=== PATIENT | female | born 1965 | race Caucasian/White ===

== ENCOUNTER → 2021-10-22 13:03 | Outpatient (BNVA) | payer MEDICARE, MEDICAID, SELFPAY | PROVIDERS: Family Provider Family Medicine; PCP Family Medicine; Visit Provider Internal Medicine | DX: I25.10 Atherosclerotic heart disease of native coronary artery without angina pectoris (principal); E11.9 Type 2 diabetes mellitus without complications; Z79.4 Long term (current) use of insulin; F17.290 Nicotine dependence, other tobacco product, uncomplicated; Z95.5 Presence of coronary angioplasty implant and graft | CPT/HCPCS: 93005; 99204 ==

== ENCOUNTER → 2022-03-05 12:41 | Outpatient (BNVA) | payer MEDICARE, MEDICAID, SELFPAY | PROVIDERS: Family Provider Family Medicine; PCP Family Medicine; Visit Provider Internal Medicine | DX: I25.10 Atherosclerotic heart disease of native coronary artery without angina pectoris (principal); E11.9 Type 2 diabetes mellitus without complications; Z79.4 Long term (current) use of insulin; F17.290 Nicotine dependence, other tobacco product, uncomplicated | CPT/HCPCS: 99214 ==

== ENCOUNTER → 2023-09-30 09:45 | Outpatient (BNVA) | payer MEDICARE, MEDICAID, SELFPAY | PROVIDERS: Family Provider Family Medicine; PCP Family Medicine; Referring Provider Family Medicine; Visit Provider Internal Medicine | DX: I25.10 Atherosclerotic heart disease of native coronary artery without angina pectoris; E78.2 Mixed hyperlipidemia; N81.4 Uterovaginal prolapse, unspecified; E11.42 Type 2 diabetes mellitus with diabetic polyneuropathy; Z79.4 Long term (current) use of insulin | CPT/HCPCS: 99205 ==

== ENCOUNTER 2023-09-30 10:52 | Emergency (ER) | payer MEDICARE, MEDICAID, SELFPAY ==
[2023-09-30 11:20] VITALS: BP 130/77; PULSE 70; RESP 16; TEMP 36.7; O2SAT 97; BMI 30.6
--- NOTE | 2023-09-30 12:37 | PC.NURSE ---
PATIENT IN [place] CALLED BACK BECAUSE SHE WANTED SOMETHING TO EAT OR DRINK. PATIENT BG TAKEN WITH RESULT OF 193. ADVISED PATIENT NOT TO EAT OR DRINK AT THIS TIME UNTIL SEEN BY A PHYSICIAN.
[2023-09-30 12:39] LABS: Glucose Point of Care 193 mg/dL (70-110)
[2023-09-30 12:45] LABS: Basophils % 0.3 %; Eosinophils # 0.4 10^3/uL (0.0-0.8); Eosinophils % 3.9 %; Hematocrit 44.6 % (36-47); Lymphocytes # 2.9 10^3/uL (0.8-4.8); Lymphocytes % 32.2 %; Mean Corpuscular HGB Conc 33.9 g/dL (30-55); Mean Corpuscular Hemoglobin 31.3 pg (27-33); Mean Corpuscular Volume 92.5 fl (85-98); Mean Platelet Volume 9.9 fL (7.4-10.4); Monocytes # 0.8 10^3/uL (0.2-0.9); Neutrophils # 4.86 10^3/uL (1.8-7.7); Neutrophils % 54.2 %; Nucleated Red Blood Cells % 0 %; Platelet Count 195 10^3/cmm (157-399); Red Blood Count 4.82 10^6/uL (3.85-5.65); Red Cell Distribution Width 12.9 % (12.1-15.1); White Blood Count 8.98 10^3/uL (3.29-11.43)
--- NOTE | 2023-09-30 13:10 | ED_ITS ---
HPI - Female Genitourinary 2 General: Chief complaint: Urogenital-Female Stated complaint: dr hung referral, prolapse Time Seen by Provider: 09/30/23 13:01 Source: patient Mode of arrival: ambulatory Limitations: no limitations History of Present Illness: 58-year-old female states that over the last few weeks she has been having a uterine prolapse she states it goes back in on but she has been having some pressure feeling down there she has not seen an HEAD MIXER she denies any pain she denies any fevers denies any worse improving factors. Associated symptoms: Deny abdominal pain, headache(s) or nausea Review of Systems 2 Const: Denies: fever(s), chills, body aches or change in appetite ENMT: Denies: throat pain or dental pain Card: Denies: chest pain Resp: Denies: dyspnea GI: Denies: abdominal pain, nausea, vomiting or diarrhea : Denies: dysuria Musc: Denies: neck pain or back pain Skin/Breast: Denies: rash Neuro: Denies: headache(s) PFSH ED 2 PFSH: Medical History CAD (coronary artery disease) Diabetes mellitus Family History Grandmother Cancer Enlarged heart Social History Smoking and tobacco/nicotine status: never used tobacco/nicotine Alcohol intake: never Substance/Drug Use: never Physical Exam 2 Const: COMMON NORMALS: no acute distress, patient oriented x3 and healthy appearing HENMT: COMMON NORMALS: normocephalic and atraumatic HEAD & SCALP: n ormocephalic and atraumatic Neck/C-Spine: COMMON NORMALS: full ROM and supple Chest: COMMONS NORMALS: normal inspection of the chest Resp: COMMON NORMALS: normal respiratory effort GI: COMMON NORMALS: Normal to inspection, nondistended, normoactive bowel sounds present, Soft to palpation, non-tender and no masses PALPATION: Yes Soft to palpation : OTHER: Vaginal exam was normal no uterine prolapse at this time Extremity: COMMON NORMALS: normal to inspection and full ROM Neuro: COMMON NORMALS: patient oriented x3, moves all extremities and no focal motor deficits Psych: COMMON NORMALS: mental status grossly normal, Normal thought process present and cooperative THOUGHT PROCESS: Normal thought process present Skin: COMMON NORMALS: no rashes or lesions noted and no wounds GENERAL SKIN EXAM: no rashes or lesions noted Course 2 Vital Signs: Vital signs: Vital Signs Temperature 98.1 F 09/30/23 11:20 Pulse Rate 70 09/30/23 11:20 Respiratory Rate 16 09/30/23 11:20 Blood Pressure 130/77 09/30/23 11:20 Pulse Oximetry 97 09/30/23 11:20 Oxygen Delivery Me thod Room Air 09/30/23 11:20 MDM - Female Medical Decision Making Patient presents here with uterine prolapse that is not prolapse currently she is well-appearing here we will get a follow-up with HEAD MIXER. Medical Records I reviewed the patient's medical records. Lab Data I reviewed the patient's lab results. 09/30/23 12:29 09/30/23 12:29 Laboratory Results WBC 8.98 10^3/uL (3.29-11.43) 09/30/23 12:29 RBC 4.82 10^6/uL (3.85-5.65) 09/30/23 12:29 Hgb 15.10 g/dL (11.27-16.99) 09/30/23 12:29 Hct 44.6 % (36-47) 09/30/23 12:29 MCV 92.5 fl (85-98) 09/30/23 12:29 MCH 31.3 pg (27-33) 09/30/23 12:29 MCHC 33.9 g/dL (30-55) 09/30/23 12:29 RDW 12.9 % (12.1-15.1) 09/30/23 12:29 Plt Count 195 10^3/cmm (157-399) 09/30/23 12:29 MPV 9.9 fL (7.4-10.4) 09/30/23 12: Neut % (Auto) 54.2 % 09/30/23 12:29 Lymph % (Auto) 32.2 % 09/30/23 12:29 [place] % (Auto) 9.0 % 09/30/23 12:29 Eos % (Auto) 3.9 % 09/30/23 12:29 Baso % (Auto) 0.3 % 09/30/23 12: Neut # (Auto) 4.86 10^3/uL (1.8-7.7) 09/30/23 12: Lymph # (Auto) 2.9 10^3/uL (0.8-4.8) 09/30/23 12: Concordia # (Auto) 0.8 10^3/uL (0.2-0.9) 09/30/23 12: Eos # (Auto) 0.4 10^3/uL (0.0-0.8) 09/30/23 12: Baso # (Auto) 0.0 10^3/uL (0.0-0.1) 09/30/23 12: Nucleated RBC % (auto) 0 % 09/30/23 12: Nucleated RBCs # 0.0 /100WBC 09/30/23 12:29 Sodium 138 mmol/L (136-145) 09/30/23 12: Potassium 4.3 mmol/L (3.5-5.1) 09/30/23 12: Chloride 104 mmol/L (98-107) 09/30/23 12: Carbon Dioxide 22 mmol/L (22-29) 09/30/23 12:29 Anion Gap 16.3 (5-19) 09/30/23 12:29 BUN 12 mg/dL (6-20) 09/30/23 12: Creatinine 0.6 mg/dL (0.5-0.9) 09/30/23 12:29 GFR Calculation 102.7 mL/min (90-130) 09/30/23 12:29 POC Glucose 193 mg/dL (70-110) H 09/30/23 12:36 Calculated Osmolality 291 mOsm/kg (285-295) 09/30/23 12: Calcium 9.0 mg/dL (8.5-10.5) 09/30/23 12:29 Total Bilirubin 0.2 mg/dL (0.15-1.2) 09/30/23 12:29 AST 15 U/L (0-32) 09/30/23 12:29 ALT 28 U/L (0-33) 09/30/23 12:29 Alkaline Phosphatase 74 U/L (35-105) 07/25/24 12:29 Total Protein 7.2 g/dL (6.6-8.7) 09/30/23 12:29 Albumin 4.1 g/dL (3.5-5.2) 09/30/23 12:29 Globulin 3.1 g/dL (1.3-4.6) 09/30/23 12:29 No radiology studies performed this visit Discharge Plan Discharge Patient Disposition: Home Clinical Impression: Uterine prolapse Condition: Stable Prescriptions: No Action insulin aspart U-100 [Novolog FlexPen U-100 Insulin] 100 unit/mL (3 mL) insulin pen SUBCUT latanoprost 0.005 % drops 1 drp ophthalmic (eye) DAILY aspirin [Aspirin Childrens] 81 mg tablet,chewable 81 mg PO DAILY atorvastatin 40 mg tablet 40 mg PO DAILY clopidogrel 75 mg tablet 75 mg PO DAILY metoprolol succinate 25 mg tablet extended release 24 hr 25 mg PO DAILY cholecalciferol (vitamin D3) 125 mcg (5,000 unit) capsule 125 mcg PO DAILY insulin asp prt-insulin aspart [Novolog Mix 70-30FlexPen U-100] 100 unit/mL (70-30) insulin pen 5 unit SUBCUT DIRECTED Rx Instructions: Inject insulin subcutaneously as directed by prescriber. Max 80 units per day vitamin B complex Tablet 1 tab PO DAILY magnesium 250 mg tablet 250 mg PO DAILY hydroxyzine HCl 25 mg tablet 25 mg PO TID PRN lisinopril 5 mg tablet 5 mg PO DAILY Qty: 90 3RF Discharge Orders: Discharge ED (Routine); Ordered 09/30/23 Ordered By: Anais Cobian Referrals: Gary Rothman MD [Physician] - 1-3 days Delfino Aguilar MD [Primary Care Provider] - Discharge Diet: Advance as tolerated Discharge Activity: Resume usual activity Patient Instructions: Uterine Prolapse (ED) Coding Level of Care Code ED Legal Job Titles for Guerrero Carter
[2023-09-30 13:12] LABS: Alanine Aminotransferase 28 U/L (0-33); Albumin Level 4.1 g/dL (3.5-5.2); Alkaline Phosphatase 74 U/L (35-105); Anion Gap 16.3 (5-19); Aspartate Amino Transferase 15 U/L (0-32); Blood Urea Nitrogen 12 mg/dL (6-20); Carbon Dioxide 22 mmol/L (22-29); Chloride 104 mmol/L (98-107); Creatinine Clr Calc Pharmacy 109.0424; Globulin 3.1 g/dL (1.3-4.6); Glomerular Filtration Rate 102.7 mL/min (90-130); Glucose 192 mg/dL (65-115); Osmolality Calculated 291 mOsm/kg (285-295); Potassium 4.3 mmol/L (3.5-5.1); Sodium 138 mmol/L (136-145); Total Bilirubin 0.2 mg/dL (0.15-1.2); Total Protein 7.2 g/dL (6.6-8.7)
[2023-09-30 13:23] VITALS: BP 130/77; PULSE 70; RESP 16; TEMP 36.7; O2SAT 97
[2023-09-30 13:31] LABS: Specific Gravity, Urine 1.025 (1.005-1.030); Urine Appearance Clear (CLEAR); Urine Color Yellow (Yellow); pH Urine 5 (5-7)
[2023-09-30 13:32] LABS: Add Urine Microscopic? YES; Bilirubin Urine Neg (Negative); Blood Urine Neg (Negative); Glucose Urine UA 4+ (Normal); Ketones Urine 1+ (Negative); Leukocyte Esterase Urine Negative (Negative); Nitrate Urine Negative (Negative); Protein Urine 1+ (Negative); Urobilinogen Urine Norm (Negative)
[2023-09-30 13:36] LABS: Bacteria Urine TRACE /hpf; WBC Urine 0-4 /hpf (0-5)
[2023-09-30 13:37] LABS: Add Urine Culture? No
--- NOTE | 2023-10-04 07:16 | DCPLANNER ---
messaged [facility] for er f/u
== END 2023-09-30 13:23 | disposition home or self-care (01) ==
PROVIDERS: Family Medicine; Emergency Provider Emergency Medicine; Family Provider Family Medicine; PCP Family Medicine
DX: N81.4 Uterovaginal prolapse, unspecified (principal); Z79.02 Long term (current) use of antithrombotics/antiplatelets; Z79.82 Long term (current) use of aspirin; Z79.4 Long term (current) use of insulin; I25.10 Atherosclerotic heart disease of native coronary artery without angina pectoris; E11.9 Type 2 diabetes mellitus without complications
CPT/HCPCS: 36415; 36416; 80053; 81001; 82962; 85025; 99283

== ENCOUNTER → 2023-11-15 09:46 | Outpatient (BNVA) | payer MEDICARE, MEDICAID, SELFPAY | PROVIDERS: Family Provider Family Medicine; PCP Family Medicine; Referring Provider Emergency Medicine; Visit Provider Obstetrics & Gynecology | DX: Z53.9 Procedure and treatment not carried out, unspecified reason (principal) | CPT/HCPCS: 84315 ==

== ENCOUNTER → 2023-12-01 12:50 | Outpatient (BNVA) | payer MEDICARE, MEDICAID, SELFPAY | PROVIDERS: Family Provider Family Medicine; PCP Family Medicine; Visit Provider Obstetrics & Gynecology | DX: N81.9 Female genital prolapse, unspecified (principal); R93.89 Abnormal findings on diagnostic imaging of other specified body structures; D25.9 Leiomyoma of uterus, unspecified | CPT/HCPCS: 76830 ==

== ENCOUNTER → 2023-12-15 08:36 | Outpatient (BNVA) | payer MEDICARE, MEDICAID, SELFPAY | PROVIDERS: Family Provider Family Medicine; PCP Family Medicine; Visit Provider Internal Medicine | DX: E11.9 Type 2 diabetes mellitus without complications (principal); E78.2 Mixed hyperlipidemia; I25.10 Atherosclerotic heart disease of native coronary artery without angina pectoris; N81.4 Uterovaginal prolapse, unspecified; Z79.4 Long term (current) use of insulin | CPT/HCPCS: 99214 ==

== ENCOUNTER → 2024-03-06 13:22 | Outpatient (BNVA) | payer MEDICARE, MEDICAID, SELFPAY | PROVIDERS: Family Provider Family Medicine; PCP Family Medicine; Visit Provider Internal Medicine | DX: I25.118 Atherosclerotic heart disease of native coronary artery with other forms of angina pectoris (principal); Z72.0 Tobacco use; E78.2 Mixed hyperlipidemia; E11.9 Type 2 diabetes mellitus without complications; Z79.4 Long term (current) use of insulin | CPT/HCPCS: 99215 ==

== ENCOUNTER 2024-03-06 15:20 | Inpatient (IN) | payer MEDICARE, MEDICAID, SELFPAY ==
--- OUTSIDE RECORDS SUMMARY | 2024-03-06 15:24 | XMS_ITS ---
Author Name Unknown Organization Unknown ALLERGIES AND ADVERSE REACTIONS No information ASSESSMENT No information CHIEF COMPLAINT No information MEDICATIONS No information OBJECTIVE DATA No information PHYSICAL EXAMINATION No information TREATMENT PLAN Planned Care Start Date Provider Encounter for Check-up [id number] [facility] PROBLEMS No information RESULTS No information REVIEW OF SYSTEMS No information SUBJECTIVE DATA No information VITAL SIGNS No information
--- OUTSIDE RECORDS SUMMARY | 2024-03-06 15:24 | XMS_ITS | Continuity of Care Document ---
Author Name Unknown Organization [facility] Address [address] [place] [address] Phone Care Team Providers Care Supervisor Ticket Sales Name Role Phone Susanne DELACRUZ, Jasmin Unavailable Unavail able Allergies, Adverse Reactions, Alerts Substance Reaction Status Criticality methylprednisolone Active No Inform ation PROPOXYPHENE NAPSYLATE Active No In formation acetaminophen Active No Information codeine throat swelling Active No Informati on hydrocodone throat swelling Active No Informati on PHENYTOIN SODIUM EXTENDED anaphylaxis Active No Information PHENYTOIN SODIUM anaphylaxis Active No Informat ion Procedures Procedure Date HEMOGLOBIN A1C EST COMPREHENSIVE [facility] COMPREHENSIVE [facility] COMPREHENSIVE EST COMPREHENSIVE OV EST COMPREHENSIVE [facility] HEMOGLOBIN A1C OV EST COMPREHENSIVE OV EST COMPREHENSIVE GLUCOSE STICK MONITOR OV EST COMPREHENSIVE OV EST COMPREHENSIVE Advance Directives Directive Yes / No Effective Date File Name No Information Encounters Encounter Description Practice Location Reason(s) For Visit Diagnoses Date Provider Providers Copied on Encounter [facility], [address], [place], [place], [id number], [place] tel:[phone] [facility] No Information 2 Susanne Castellanos. [address] [facility], [id number] [place], [place], [id number], [place]. tel:[phone] [facility], [address], [place], [place], [id number], [place] tel:[phone] [facility] Practice diabetes (follow up) (chief complaint) MULTIPLE SCLEROSISDiabe norma Mellitus Type 2, UncomplicatedH YPERTENSION BENIGNHYPERLIP IDEMIA ELDA OR DYSLIPIDEMIAOb esity 2 Cale Eugeneo. [address], [id number] , [place], [place], [address] [place] [address], [place]. tel:[phone] [facility], [address], [place], [place], [id number], tel: [phone] [facility] multiple sclerosis follow up (chief complaint) cold symptoms (chief complaint) URI ACUTE NOSMULTIPLE SCLEROSISHYPER LIPIDEMIA ELDA OR DYSLIPIDEMIAHY PERTENSION BENIGNObesityD iabetes Mellitus Type 2, Uncomplicated 2 Madsenjeremiah Eugeneo. [address], [id number] , [place], [place], [address] [place] [address], [place]. tel: [phone] [facility], [address], [place], [place], [address] [place] [address], [place] tel: [phone] [facility] diabetes (follow up) (chief complaint) HYPERTENSION BENIGNObesity 1 Madsenjeremiah Eugeneo. [address], [id number] , [place], [place], [address] [place] [address], [place]. tel:[phone] [facility], [address], [place], [place], [id number], tel: [phone] [facility] diabetes (chief complaint) hyperlipid emia (chief complaint) smoking cessation (chief complaint) mulitiple sclerosis (chief complaint) Diabetes Mellitus Type 2, UncomplicatedH YPERLIPIDEMIA ELDA OR DYSLIPIDEMIAMU LTIPLE SCLEROSISUnspe cified dental cariesNicotine Dependence or Tobacco AbuseMULTIPLE SCLEROSISDiabe norma Mellitus Type 2, UncomplicatedN icotine Dependence or Tobacco Abuse 1 Madsenjeremiah Eugeneo. [address], [id number] , [place], [place], [id number], [place]. tel:[phone] [facility], [address], [place], [place], [id number], tel:[phone] [facility] Family Practice diabetes (chief complaint) MS (chief complaint) hyperlipid emia (chief complaint) sleep apnea (chief complaint) Diabetes Mellitus Type 2, UncomplicatedM ULTIPLE SCLEROSISHYPER LIPIDEMIA ELDA OR DYSLIPIDEMIAMY ALGIA or FibromyalgiaUn specified sleep apneaINSOMNIA NOSDiabetes Mellitus Type 2, UncomplicatedH YPERLIPIDEMIA ELDA OR DYSLIPIDEMIAIN SOMNIA NOS Dec- 1 Madsen Lenard. [address], [id number] , [place], [place], [id number], [place]. tel:[phone] [facility], [address], [place], [place], [id number], tel:[phone] [facility] diabetes (chief complaint) hyperlipid emia (chief complaint) chronic pain (chief complaint) insomnia (chief complaint) GERD (chief complaint) fibromyalg ia and MS (chief complaint) Diabetes Mellitus Type 2, UncomplicatedH YPERLIPIDEMIA ELDA OR DYSLIPIDEMIAMY ALGIA or FibromyalgiaMU LTIPLE SCLEROSISDiabe norma Mellitus Type 2, UncomplicatedM ULTIPLE SCLEROSIS Nov-2 1 Cale Tobiasnando. [address], [id number] , [place], [place], [id number], [place]. [phone] Family History Family Member Type Diagnosis Age At Onset Problem (finding) Family history of Diabe norma mellitus Problem (finding) Family history of hyper tension Problem (finding) Family history of Cance r Problem (finding) Family history of strok e Payers Payer name Insurance type Covered green party ID Authoriza tion(s) No Information Social History Type Description Quantity Date Captured Comments Sex Female Smoking Status No Information Chief Complaint And Reason For Visit No Information Reason For Referral Reason For Referral No Information Plan Of Treatment Date Type Action Status Goal Td vaccine. Due on 12 due Goal PHQ-9. Due on du e Goal Diabetes Screening. Due on O due Goal PAP. 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 Due on due Goal Lipid Panel. Due on 012 due Goal Breast exam. Due on due Goal H&P. Due on due Goal Tdap. Due on due Referral Ordered: Dentistry (related to Unspecified dental caries) ordered Referral Ordered: Referral: Dentistry. Evaluate and treat. ordered History Of Present Illness Encounter Date Complaint History Of Prese nt Illness No Information Functional Status Date Functional Assessmen t No Information Instructions Date Instruction Additional Infor mation No Information Assessments Type Assessment Date No Information Patient Care Teams Name Effective Dates (start - stop) Status Members No Information
--- NOTE | 2024-03-06 16:01 | USCV_ITS ---
Yuli Butcher Age: 59 Gender: F : 1965 Exam Date: 03/06/2024 16:27 Ordering Phys: María Pearson NP Technologist: CT Exam Location: [facility]_ Indication: BP: 163 / 93 HR: 64 Rhythm: Sinus Technical Quality: Adequate MEASUREMENTS (Male / Female) Normal Values 2D ECHO LVOT Diameter 2.0 cm LV Ejection Fraction MOD 4C 57.6 % LV Ejection Fraction MOD 2C 59.8 % LV Ejection Fraction 2C AL 62.0 % LA Diameter 3.4 cm RA Systolic Volume 4C AL 64.8 ml RA Systolic Volume 4C MOD 61.0 ml LA Sys Volume AL 55.0 cm cubed LA Sys Volume Index AL 26.2 cm cubed/m squared Aorta at Sinotubular Diameter 2.4 cm M-MODE LA Ao Ratio MM 1.5 AV Cusp Separation MM 1.8 cm DOPPLER AV Peak Velocity 111.0 cm/s LVOT Peak Velocity 93.0 cm/s AV Area Cont Eq vti 2.4 cm squared AV Area Cont Eq pk 2.6 cm squared MV Peak Velocity 97.7 cm/s MV Area PHT 3.0 cm squared Mitral E to A Ratio 1.0 TV Peak Velocity 222.0 cm/s TR Peak Velocity 231.5 cm/s TR Peak Gradient 21.4 mmHg TR Mean Velocity 181.0 cm/s TR Mean Gradient 14.1 mmHg TR Velocity Time Integral 69.4 cm TV Peak E Velocity 66.0 cm/s PV Peak Velocity 118.5 cm/s FINDINGS Left Ventricle Left ventricle is normal size. LV systolic function is normal with EF of 55 to 60%. No regional wall motion abnormalities are seen. Right Ventricle Normal in size and function Right Atrium Normal in size Left Atrium Normal in size Mitral Valve Structurally normal mitral valve. Mild mitral regurgitation. Aortic Valve Structurally normal aortic valve. No significant stenosis or regurgitation. Tricuspid Valve Mild tricuspid regurgitation. Insufficient TR jet to calculate RVSP Pulmonic Valve Not well visualized Pericardium Normal Aorta Normal in size IVC Appears to be normal CONCLUSIONS LV systolic function is normal with EF of 55-60% Mild mitral regurgitation Mild tricuspid regurgitation No comparison studies are available. Chaz Patel MD (Electronically Signed) Final Date: 07 March 2024 09:50 S
--- NOTE | 2024-03-06 16:08 | P.HP_ITS ---
<Statement entered by Chaz Patel M.D - 03/06/24 20:39> Patient was evaluated and cared for in conjunction with an advanced practice practitioner.? I personally examined the patient and reviewed the chart and all pertinent data including imaging, telemetry, and laboratory results.? I discussed the patient in detail with the advanced practice practitioner.? Please see? their note for complete H&P, testing result and agreed upon plan of care for the patient. Briefly, patient with multiple stents who is admitted from clinic as she was having worsening chest pain symptoms for last 4 weeks with multiple resting chest pain episodes recently with radiation to arms and back. GENERAL: Patient is alert, awake and oriented x3. HEART: Regular S1 and S2 LUNGS: Clear to auscultate bilaterally. CENTRAL NERVOUS SYSTEM: Grossly nonfocal. EXTREMITIES: Lower extremities with out edema bilaterally. ASSESSMENT AND PLAN: (1) Worsening angina (2) CAD (coronary artery disease) (3) Tobacco abuse (4) Hyperlipemia, mixed (5) DM type 2 (diabetes mellitus, type 2) Patient's findings are consistent with unstable angina. Plan for coronary angiogram with possible percutaneous coronary intervention. Risks and benefits of the procedure have been discussed with the patient. She understands these and wants to proceed. NPO past midnight. Troponins have not trended up significantly Continue aspirin and plavix Consulting hospitalist service for diabetes management ECHO ordered. Providers/Chief Complaint Admitting Physician: Chaz Patel M.D Primary Care Provider: Delfino Aguilar MD Chief Complaint: Unstable Magda History of Present Illness Mrs. Butcher is a very pleasant 60-year-old female with past medical history significant for CAD, type 2 diabetes with insulin pump, tobacco abuse. She has a hx of STEMI in which she was treated at [facility]. She underwent multiple PCI's with 6 stents. She has 4 stents in the RCA. According to the patient after the RCA was treated she went into cardiac arrest. She was brought back and proximal mid LAD was treated with a stent as well as the OM with another stent. She was later admitted again to the hospital and was found to have pleural and pericardial effusion. Pleural effusion was drained. She is currently on dual antiplatelet therapy including aspirin and Plavix. EKG done in the office today showed normal sinus rhythm with a rate of 87 and changes consistent with prior inferior infarction. She was seen for routine follow-up in our clinic and had been having chest pains that were worsening in the last month. It appears she hasn't followed up in a couple of years. This chest pain starts at the center of her chest and radiates down both arms. Initially it was exertional but now she is having resting symptoms. Blood pressures currently controlled. At the time of my evaluation she is chest pain- free. Review of Systems Narrative: Consitutional: denies fever, chills, body aches, or changes in appetite, denies abnormal weight loss Eyes: Denies changes in vision Card: Reports recent chest pain that radiates down both arms, palpitations, irregular heart rhythm, reports new onset edema bilateral lower extremities, denies syncope, shortness of breath, orthopnea, leg pain with exertion Resp: Denies shortness of breath, denies hemoptysis, denies cough GI: denies abdominal pain, denies nausea or voimting, denies blood in stool : denies blood in urine, denies dysuria Musc: Denies extremity pain, denies limited range of motion or recent injury Skin: Denies rash, lesions, or wounds, denies changes to skin color Neuro: Denies nubmness in extremities, h/a, s/s of stroke Hunter: Denies easy bruiding/bleeding Medications/Allergies Home Medications Medication Instructions Recorded Confirmed Last Taken Type aspirin 81 mg chewable tablet 81 mg PO DAILY 10/22/21 03/06/24 Unknown History (Aspirin Childrens) atorvastatin 40 mg tablet 40 mg PO DAILY 10/22/21 03/06/24 Unknown History cholecalciferol (vitamin D3) 125 125 mcg PO DAILY 10/22/21 03/06/24 Unknown History mcg (5,000 unit) capsule clopidogrel 75 mg tablet 75 mg PO DAILY 10/22/21 03/06/24 Unknown History magnesium 250 mg tablet 250 mg PO DAILY 10/22/21 12/15/23 Unknown History metoprolol succinate 25 mg 25 mg PO DAILY 10/22/21 03/06/24 Unknown History tablet,extended release 24 hr oxybutynin chloride 5 mg 5 mg PO DAILY #30 tabs 11/15/23 03/06/24 Unknown Rx tablet,extended release 24 hr insulin aspart U-100 100 unit/mL 250 unit (2.5 mL) continuous 02/23/24 03/06/24 Unknown Rx subcutaneous solution (Novolog subcutaneous infusion DAILY #80 mL U-100 Insulin aspart) subcutaneous insulin pump (MiniMed #1 ea 02/23/24 Unknown Rx 780G Insulin Pump) hydroxyzine HCl 50 mg tablet 50 mg PO TID 03/06/24 03/06/24 Unknown History lisinopril 2.5 mg tablet 2.5 mg PO DAILY 03/06/24 03/06/24 Unknown History pantoprazole 40 mg tablet,delayed 40 mg PO DAILY 03/06/24 03/06/24 Unknown History release pregabalin 150 mg capsule 150 mg PO BID 03/06/24 03/06/24 Unknown History Allergies Allergy/AdvReac Type Severity Reaction Status Date / Time codeine Allergy Unknown Unknown Verified 03/06/24 13:39 hydrocodone Allergy Unknown Unknown Verified 03/06/24 13:39 phenytoin [From Dilantin] Allergy Unknown Unknown Verified 03/06/24 13:39 sulfamethoxazole Allergy Unknown Unknown Verified 03/06/24 13:39 trimethoprim Allergy Unknown Unknown Verified 03/06/24 13:39 fentanyl Allergy ADR-Vomitin Verified 03/06/24 13:39 g phenytoin sodium Allergy Unknown Unknown Uncoded 03/06/24 13:39 PFSH Acute PFSH: Medical History CAD (coronary artery disease) Diabetes mellitus Family History Grandmother Cancer Enlarged heart Social History Smoking and tobacco/nicotine status: former use of tobacco/nicotine Alcohol intake: never Substance/Drug Use: never Vitals/I&O/Wt Last Vital Signs O2 Del Method Room Air 03/06/24 15:58 Physical Exam Narrative: General: No apparent distress, healthy appearing, well nourished HENMT: normoceophalic Neck: No carotid bruit bilaterally Muskuloskeletal: Full ROM Respiratory: Normal respiratory effort, bilateral lower lung de le[place] with fine crackles present, no use of accessory muscles Cardio: No JVD, regular rate, regular rhythm, S1 S2 normal, no murmurs, peripheral pulses 2+ radial palpated bilaterally GI: Normal to inspection, nondistended Extremities: Full ROM, normal, normal capillary refill, no cyanosis, trace edema bilateral lower extremities Neuro: Alert and oriented x4, no focal motor deficits Psych: Affect normal, denies suicidal ideation, mental status grossly normal Skin: No rashes or lesions noted, no wounds A&P Assessment and plan (1) Worsening angina: (2) CAD (coronary artery disease): (3) Tobacco abuse: (4) Hyperlipemia, mixed: (5) DM type 2 (diabetes mellitus, type 2): Qualifiers: 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 The plan for her is to admit to [facility], will trend troponins, will also get EKG with chest x-ray. For her type 2 diabetes and insulin pump we will consult the hospitalist. We will continue to monitor for signs of worsening angina or EKG changes. At this time patient is chest pain-free. We will set patient up for an angiogram in the morning. Will get labs and an echo as well to evaluate for any wall motion abnormailties. Attestations Medical Necessity Statement*: The patient stay is expected to cross 2 midnights due to unstable angiona requiring coronary angiogram with possible PCI. 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
--- NOTE | 2024-03-06 16:10 | XRR_ITS ---
PROCEDURE INFORMATION: Exam: XR Chest Exam date and time: 03/06/2024 5:06 PM Age: 59 years old Clinical indication: Other: H/o pleural effusion; Additional info: HX of pleural effusion TECHNIQUE: Imaging protocol: Radiologic exam of the chest. Views: 1 view. COMPARISON: No relevant prior studies available. FINDINGS: Lungs: Unremarkable. No consolidation. Pleural spaces: Unremarkable. No pleural effusion. No pneumothorax. Heart/Mediastinum: Unremarkable. No cardiomegaly. Bones/joints: Unremarkable. XR/XR chest 1V portable [id number] IMPRESSION: No acute findings.
[2024-03-06] MEDS: aspirin 325 mg Tablet PO (16:16)
[2024-03-06 16:30] LABS: Glucose Point of Care 182 mg/dL (70-110)
[2024-03-06 16:36] VITALS: BP 163/93; PULSE 71; RESP 17; TEMP 36.7; O2SAT 96
[2024-03-06 16:43] LABS: Basophils % 0.3 %; Eosinophils # 0.3 10^3/uL (0.0-0.8); Eosinophils % 3.8 %; Hematocrit 40.9 % (36-47); Lymphocytes % 33.6 %; Mean Corpuscular HGB Conc 34.2 g/dL (30-55); Mean Corpuscular Hemoglobin 31.7 pg (27-33); Mean Corpuscular Volume 92.5 fl (85-98); Mean Platelet Volume 9.8 fL (7.4-10.4); Monocytes # 0.8 10^3/uL (0.2-0.9); Monocytes % 8.6 %; Neutrophils # 4.74 10^3/uL (1.8-7.7); Neutrophils % 53.4 %; Nucleated Red Blood Cells % 0 %; Platelet Count 169 10^3/cmm (157-399); Red Blood Count 4.42 10^6/uL (3.85-5.65); Red Cell Distribution Width 13.4 % (12.1-15.1); White Blood Count 8.88 10^3/uL (3.29-11.43)
--- NOTE | 2024-03-06 16:56 | P.CONIM_ITS ---
Providers/Reason For Consult 2 Consulting Physician/Specialty*: Hospitalist Reason for Consult*: Diabetes management. Patient has insulin pump. Attending Physician: Chaz Patel M.D Primary Care Provider: Delfino Aguilar MD History of Present Illness History of Present Illness Pleasant 59-year-old lady with history of DM 2, CAD with prior stenting, pleural and pericardial effusion, was directly admitted to cardiology team on cardiac stepdown unit due to pain in her chest, arms, now bothersome at rest as well as with exertion. She usually manages her diabetes with insulin pump at home. Hospitalist is consulted due to this. She states her pump was preset for her by her [employer] care trainer. She states she does not mess around with her pump much worried that she might throw something off. She states that her A1c has finally started showing some improvement. Review of Systems 2 Const: Denies: fever(s), chills, body aches or malaise ENMT: Denies: throat pain Card: Reports: chest pain; Denies: edema, pre-syncope or dyspnea on exertion Resp: Denies: dyspnea, productive cough, change in phlegm color or hemoptysis GI: Denies: abdominal pain, nausea, vomiting, diarrhea, constipation, hematochezia or melena : Denies: flank pain or hematuria Musc: Reports: extremity pain (BL arm pain); Denies: joint swelling or joint redness Skin/Breast: Denies: rash Neuro: Denies: headache(s) Medications/Allergies Home Medications Medication Instructions Recorded Confirmed Last Taken Type aspirin 81 mg chewable tablet 81 mg PO DAILY 10/22/21 03/06/24 03/06/24 History (Aspirin Childrens) atorvastatin 40 mg tablet 40 mg PO DAILY 10/22/21 03/06/24 03/06/24 History cholecalciferol (vitamin D3) 125 125 mcg PO DAILY 10/22/21 03/06/24 03/06/24 History mcg (5,000 unit) capsule clopidogrel 75 mg tablet 75 mg PO DAILY 10/22/21 03/06/24 03/06/24 History metoprolol succinate 25 mg 25 mg PO DAILY 10/22/21 03/06/24 03/06/24 History tablet,extended release 24 hr insulin aspart U-100 100 unit/mL 250 unit (2.5 mL) continuous 02/23/24 03/06/24 03/06/24 Rx subcutaneous solution (Novolog subcutaneous infusion DAILY #80 mL U-100 Insulin aspart) subcutaneous insulin pump (MiniMed #1 ea 02/23/24 03/06/24 Unknown Rx 780G Insulin Pump) acetaminophen 650 mg 650 mg PO Q12H PRN Pain 03/06/24 03/06/24 Unknown History tablet,extended release (Tylenol Arthritis Pain) fluticasone propionate 50 1 - 2 spray intranasal DAILY 03/06/24 03/06/24 03/06/24 History mcg/actuation nasal spray,suspension hydroxyzine HCl 50 mg tablet 50 mg PO TID 03/06/24 03/06/24 03/06/24 08:00 History lisinopril 2.5 mg tablet 2.5 mg PO DAILY 03/06/24 03/06/24 03/06/24 History oxybutynin chloride 10 mg 10 mg PO DAILY 03/06/24 03/06/24 03/06/24 History tablet,extended release 24 hr pantoprazole 40 mg tablet,delayed 40 mg PO DAILY 03/06/24 03/06/24 03/06/24 History release pregabalin 150 mg capsule 150 mg PO BID 03/06/24 03/06/24 03/06/24 08:00 History Allergies Allergy/AdvReac Type Severity Reaction Status Date / Time codeine Allergy Unknown Unknown Verified 03/06/24 13:39 hydrocodone Allergy Unknown Unknown Verified 03/06/24 13:39 phenytoin [From Dilantin] Allergy Unknown Unknown Verified 03/06/24 13:39 sulfamethoxazole Allergy Unknown Unknown Verified 03/06/24 13:39 trimethoprim Allergy Unknown Unknown Verified 03/06/24 13:39 fentanyl Allergy ADR-Vomitin Verified 03/06/24 13:39 g phenytoin sodium Allergy Unknown Unknown Uncoded 03/06/24 13:39 PFSH Acute 2 PFSH: Medical History CAD (coronary artery disease) Diabetes mellitus Family History Grandmother Cancer Enlarged heart Social History Smoking and tobacco/nicotine status: former use of tobacco/nicotine Alcohol intake: never Substance/Drug Use: never Vitals/I&O/Wt Last Vital Signs Temp 98.0 F 03/06/24 16:36 Pulse 71 03/06/24 16:36 Resp 17 03/06/24 16:36 BP 163/93 03/06/24 16:36 Pulse Ox 96 03/06/24 16:36 O2 Del Method Room Air 03/06/24 16:36 Weight last 48 hrs Weight 92.079 kg Physical Exam 2 Const: COMMON NORMALS: patient oriented x3 and alert GENERAL APPEARANCE: c ooperative ORIENTATION/CONSCIOUSNESS: Yes awake HENMT: COMMON NORMALS: oropharynx normal Neck/C-Spine: COMMON NORMALS: no JVD Resp: COMMON NORMALS: normal respiratory effort and clear to auscultation bilaterally AUSCULTATION: clear to auscultation bilaterally Cardio: COMMON NORMALS: no JVD, regular rhythm, S1 normal heart sound present, S2 normal heart sound present and No murmurs present (Cardio) RHYTHM: regular rhythm HEART SOUNDS: S1 normal heart sound present and S2 normal heart sound present GI: COMMON NORMALS: Normal to inspection, nondistended, normoactive bowel sounds present, Soft to palpation and non-tender PALPATION: Yes Soft to palpation Extremity: COMMON NORMALS: no joint enlargement and no pedal edema Neuro: COMMON NORMALS: patient oriented x3 and moves all extremities S ENSORIUM/ORIENTATION: Yes alert Skin: COMMON NORMALS: no rashes or lesions noted GENERAL SKIN EXAM: no rashes or lesions noted Data 03/06/24 16:25 03/06/24 16:25 A&P Assessment and plan (1) DM type 2 (diabetes mellitus, type 2): Reviewed endocrinology note, on discussion with her, reviewed pump summary, over last 14 days TDD over 200 units average, however, over the last day 165 units TDD. As per discussion with her we will pause insulin pump while in the hospital transition to subcutaneous insulin and resume at discharge. As per discussion with cardiology team she will be n.p.o. after midnight with anticipation of a procedure. Discussed with her we will reduce basal insulin dose for now to help avoid hypoglycemia. Additionally continue with short acting insulin 10 units Premeal as well as per sliding scale per high-dose protocol. Consistent carbohydrate diet. Monitor blood glucose. Monitor for risk of hypo or hyperglycemia. Hypoglycemia protocol. In the meantime pump delivery has been suspended. Additionally some of her symptoms may be related to neuropathic pain. She does describe some bilateral throbbing in her hands. Although does state that this extends up her arms and into her shoulders. Continue pregabalin. Qualifiers: Diabetes mellitus director long term care insulin use: with half-way use Diabetes mellitus complication status: with other specified complication Qualified Code(s): E11.69 - Type 2 diabetes mellitus with other specified complication; Z79.4 - shelter (current) use of insulin (2) Worsening angina: Pending additional cardiac evaluation for possible unstable angina. Discussed with cardiology, she will be n.p.o. after midnight with anticipated additional evaluation with coronary angiography. She is currently continue on aspirin, Plavix, metoprolol, atorvastatin. Lisinopril. Monitor on security monitor for risk of arrhythmia. Risk of reperfusion injury. Check D-dimer (3) CAD (coronary artery disease): Continue antiplatelets, beta-benji, statin. Continue to optimize diabetes, hypertension control. Continue lisinopril. Consult Attestations 2 Medical Necessity Statement: Admission over 2 midnights anticipated for assessment and management of unstable angina. Coding Level of Care Code Acute Code for [facility] Diagnoses Type 2 diabetes mellitus with other specified complication, with long-term current use of insulin E11.69; Z79.4 Diabetes mellitus director long term care insulin use: with half-way use Diabetes mellitus complication status: with other specified complication Worsening angina I20.0 CAD (coronary artery disease) I25.10
[2024-03-06 17:11] LABS: Troponin(5th) Baseline 15 ng/L (0-10)
[2024-03-06 17:42] LABS: D Dimer 0.42 ug/mLFEU (0-0.59)
[2024-03-06] MEDS: pregabalin 75 mg Capsule 150 MG PO (17:46)
[2024-03-06] MEDS: insulin lispro 100 unit/1 mL 10 UNIT SUBCUT (17:47)
[2024-03-06] MEDS: insulin lispro 100 unit/1 mL SUBCUT ×2 (17:47→21:46)
[2024-03-06 18:01] LABS: Anion Gap 14.9 (5-19); Blood Urea Nitrogen 11 mg/dL (6-20); Calcium 9.7 mg/dL (8.5-10.5); Carbon Dioxide 26 mmol/L (22-29); Chloride 102 mmol/L (98-107); Chol HDL Ratio 5.06 mg/dL (0.0-4.40); Cholesterol 157 mg/dL (0-200); Creatinine Clr Calc Pharmacy 113.2066; Glomerular Filtration Rate 102.3 mL/min (90-130); Glucose 149 mg/dL (65-115); HDL Cholesterol 31 mg/dL (60-100); LDL Cholesterol Calculated 50 mg/dL (50-129); LDL HDL Ratio 1.61 RATIO (0.00-3.22); NT Pro B Type Natriuretic Pept 194 pg/mL (0-125); Osmolality Calculated 290 mOsm/kg (285-295); Potassium 3.9 mmol/L (3.5-5.1); Sodium 139 mmol/L (136-145); Triglycerides 379 mg/dL (0-150)
--- NOTE | 2024-03-06 18:03 | ECG_ITS ---
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 Measurements Intervals [place] Rate: 76 P: 48 PA: 180 QRS: 3 QRSD: 110 T: 1 QT: 410 QTc: 462 Interpretive Statements SINUS RHYTHM POSSIBLE ANTERIOR MYOCARDIAL INFARCTION , OF INDETERMINATE AGE [30 ms Q WAVE IN V3/V4, OR R < 0.2 mV IN V4] No previous ECG available for comparison Electronically Signed On 03-07-2024 17:53:26 BEHAVIOR INTERVENTIONIST by Jameson Zamora M.D. [email or web address]
[2024-03-06 19:30] LABS: Troponin 5 2HR 14.85 ng/L (0-10)
[2024-03-06 19:36] VITALS: TEMP 36.6; O2SAT 95
[2024-03-06 19:39] LABS: Troponin 5 2HR Delta -0.15 ABS# (0-10)
[2024-03-06 20:03] VITALS: BP 145/75; PULSE 69; RESP 21
[2024-03-06 20:05] LABS: Glucose Point of Care 216 mg/dL (70-110)
[2024-03-06] MEDS: acetaminophen 500 mg Tablet PO (22:09)
[2024-03-06] MEDS: hyDROXYzine 25 mg Capsule 50 MG PO (22:09)
[2024-03-06 22:56] LABS: Troponin 5 6HR 15.15 ng/L (0-10); Troponin 5 6HR Delta 0.15 ng/L (0-12)
--- NOTE | 2024-03-06 22:56 | ECG_ITS ---
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 Measurements Intervals [place] Rate: 69 P: 49 OR: 187 QRS: -3 QRSD: 117 T: 17 QT: 444 QTc: 478 Interpretive Statements SINUS RHYTHM INFERIOR MYOCARDIAL INFARCTION , PROBABLY OLD [40+ ms Q WAVE AND/OR ST/T ABNORMALITY IN II/aVF] poor R wave progression Compared to ECG 03/06/2024 18:03:30 No significant changes Electronically Signed On 03-07-2024 17:54:58 RO[address] TRAFFIC CONTROLLER by Jameson Zamora M.D. [email or web address]
[2024-03-07] LABS: Glucose Point of Care 233 mg/dL (70-110)
[2024-03-07 00:12] VITALS: BP 132/79; PULSE 68; RESP 18; TEMP 37; O2SAT 94
--- NOTE | 2024-03-07 04:01 | PC.NURSE ---
Addendum entered by Hellen Hinds RN 03/07/24 05:49: Half dose of humalog given due to patient being NPO for procedure. Original Note: Patient had 50 units of lantus due at 2100. Patient will be NPO at midnight. Dr Weller notified about giving 50 units to patient with NPO orders. ordered to hold lantus.
[2024-03-07 04:03] VITALS: BP 129/68; PULSE 73; RESP 18; TEMP 36.9; O2SAT 94
[2024-03-07 06:00] VITALS: BMI 33.0
[2024-03-07] MEDS: sodium chloride 0.9% 1,000 ML 50 ML IV (06:19)
[2024-03-07 06:48] LABS: Glucose Point of Care 229 mg/dL (70-110)
[2024-03-07 07:13] VITALS: BP 143/78; PULSE 69; RESP 11; TEMP 36.6; O2SAT 94
[2024-03-07] MEDS: atorvastatin 40 mg Tablet PO (07:57)
[2024-03-07] MEDS: pantoprazole DR 40 mg Tablet PO (07:57)
[2024-03-07] MEDS: pregabalin 75 mg Capsule 150 MG PO (07:57)
[2024-03-07] MEDS: hyDROXYzine 25 mg Capsule 50 MG PO ×2 (07:57→13:57)
[2024-03-07] MEDS: diphenhydrAMINE 50 mg Capsule PO (07:57)
[2024-03-07] MEDS: metoprolol succinate ER (24 HR) 25 mg Tablet PO (07:58)
[2024-03-07] MEDS: clopidogrel 75 mg Tablet PO (07:58)
[2024-03-07] MEDS: oxybutynin chloride XL 5 MG TABLET 10 MG PO (07:58)
[2024-03-07] MEDS: acetaminophen 500 mg Tablet PO (08:04)
[2024-03-07] MEDS: lisinopril 2.5 mg Tablet PO (08:38)
[2024-03-07] MEDS: aspirin 81 mg EC Tablet PO (08:38)
--- NOTE | 2024-03-07 09:01 | PC.CHAP ---
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 [] Patient/Family/Request visit [] Outpatient visit [] Follow-up visit [] Physician referral [] Code/Alert [x] Routine visit [] Staff referral [] Actively dying [] Patient sleeping [] Family support [] [] Out of room [] Palliative care [] [] Receiving care in room [] Pre-surgical visit [] Trauma [] Long length of stay [] ICU visit [] Other: Relational/Emotional Strength x[] Patient feels connected with others/family/visitors/staff [] Distress [] Loneliness/isolation [] Abandonment Spirituality of Patient [x] Person of [place] [] Attends Zoroastrianism of their [place] [x] Believes in Prayer [] Reads Bible or Cheondoism materials [] There are Spiritual issues to be addressed Job Coach Interventions [x] Prayer [x] Active listening [x] Non-anxious presence [x] Spiritual/emotional support [] Crisis/trauma care [] Spiritual counseling [] Bereavement support [] Provided bereavement packet [] Provided Bible/devotional materials [] Provided toy/stuffed animal, coloring book to patient or family member [] Provided Communion [] Anointing/[place] [] Salvation [x] Completed spiritual assessment [] Other: Impact on Illness or Injury [] Angry [] Fearful [] Anxious [] Often cries [] Exhaustion [] Unable to work [] Unable to attend taoist [] Unable to walk/stand [] Unable to read [] Unable to drive [] Unable to eat/drink [] Unable to sleep [] Unable to be with family [] Patient intubated [] Other: Summary Time spent with patient 5 min
--- NOTE | 2024-03-07 09:21 | P.HPUD_ITS ---
Surgery/Procedure H&P Update DATE OF PROCEDURE: March 07, 2024 DATE H&P PERFORMED: 03/06/24 H&P UPDATE INFORMATION: I have reviewed H&P completed within last 30 days, I have examined patient prior to procedure and No changes to prior documentation PREOP DIAGNOSIS: Worsening/unstable angina PRIMARY INDICATION FOR PROCEDURE: Worsening/unstable angina PLANNED PROCEDURE: Operation Date: 03/07/24 08:30 Proposed Procedures p Cardiac Catheterization(Left) - Chaz Patel M.D Possible percutaneous coronary intervention PATIENT REASSESSED PRIOR TO SEDATION, WITH NO CHANGE NOTED: Yes PHYSICAL EXAM: alert, oriented x 3, clear to auscultation bilaterally and regu lar rate & rhythm AIRWAY EVAL/ANESTHESIA PLAN: normal airway, ASA III, Local Anesthesia, Risks, benefits & alternatives of sedation and/or procedure discussed and Patient agree s to continue as planned ADDITIONAL INFORMATION: Moderate sedation
--- NOTE | 2024-03-07 09:39 | P.PCN_ITS ---
Procedure Note: Date of procedure: 03/07/24 Pre-procedure diagnosis: Worsening angina Post-procedure diagnosis: other (Patent prior stents/ Non- obstructive coronary artery disease) Procedure: Left heart cath: Left main artery is patent. LAD has patent prior stent with mild ISR. Mild luminal irregularities seen. Left circumflex artery is patent with a patent prior OM stent. RCA has patent prior stent with mild ISR. Aggressive risk factor control. Symptoms likely secondary to coronary spasms/microvascular dysfucntion. Can add amlodipine Performing Provider: Chaz Patel Estimated blood loss (mL): 10 Complications: None Condition: stable Disposition: floor Coding Level of Care Code Acute Code for Chg Fwd
[2024-03-07 10:18] VITALS: BP 126/66; PULSE 64; RESP 17; TEMP 36.7; O2SAT 94
--- NOTE | 2024-03-07 10:33 | P.PN_ITS ---
Subjective 2 Subjective: Patient had an angiogram this morning that showed nonobstructive coronary artery disease. She is sitting comfortably in bed. Heart cath site on her right radial is clean dry intact without signs of hematoma. Medications: Reviewed: Yes Vitals/I&O/Wt Last Vital Signs Temp 97.9 F 03/07/24 07:13 Pulse 69 03/07/24 07:13 Resp 11 L 03/07/24 07:13 BP 143/78 03/07/24 07:13 Pulse Ox 94 03/07/24 07:13 O2 Del Method Room Air 03/07/24 07:13 03/06/24 03/07/24 03/07/24 22:59 06:59 14:59 Intake Total 840 / 840 Balance 840 / 840 Weight last 48 hrs Weight 198 lb 9 oz Weight 203 lb Physical Exam 2 Narrative: General: No apparent distress, healthy appearing, well nourished Muskuloskeletal: Full ROM Lymphatic: no lymphedema noted Respiratory: Normal respiratory effort, clear to auscultation bilaterally throughout all lung de le[place], no use of accessory muscles Cardio: No JVD, regular rate, regular rhythm, S1 S2 normal, no murmurs, peripheral pulses 2+ radial palpated bilaterally GI: Normal to inspection, nondistended Extremities: Full ROM, normal, normal capillary refill, no cyanosis or edema Neuro: Alert and oriented x4, no focal motor deficits Psych: Affect normal, denies suicidal ideation, mental status grossly normal Skin: Right radial cath site clean, dry, intact w/o s/s of hematoma Data 03/06/24 16:25 03/06/24 16:25 A&P Assessment and plan (1) Worsening angina: (2) CAD (coronary artery disease): (3) Tobacco abuse: (4) Hyperlipemia, mixed: Plan Patient's angiogram showed nonobstructive coronary artery disease. She had patent prior stents. Symptoms are likely secondary to coronary spasms/microvascular dysfunction. We will initiate amlodipine 5 mg. Will continue to treat medically. She will go home later in the day Attestations 2 Medical Necessity Statement*: Patient will be going home later today. Coding Level of Care Code Acute Code for [facility] Fwd Diagnoses Worsening angina I20.0 CAD (coronary artery disease) I25.10 Tobacco abuse Z72.0 Hyperlipemia, mixed E78.2
[2024-03-07 11:19] VITALS: BP 134/63; PULSE 67; RESP 15; TEMP 36.5; O2SAT 95
[2024-03-07 11:28] LABS: Glucose Point of Care 228 mg/dL (70-110)
[2024-03-07] MEDS: amlodipine 5 mg Tablet PO (12:21)
[2024-03-07] MEDS: insulin lispro 100 unit/1 mL SUBCUT (12:22)
[2024-03-07 14:58] VITALS: BP 124/93; PULSE 82; RESP 17; TEMP 36.8; O2SAT 96
--- NOTE | 2024-03-07 16:31 | P.DS_ITS ---
Discharge Providers Date of Admission: 03/06/24 15:20 Date of Discharge: March 07, 2024 Attending Provider at Admission: Chaz Patel M.D Attending Provider at Discharge: Chaz Patel M.D Consults: Hospitalist Primary Care Provider: Delfino Aguilar MD Diagnoses at Discharge Discharge Diagnosis (1) Worsening angina: Details from hospital stay: As stated below. Will add amlodipine for coronary spasm. Status: Acute (2) CAD (coronary artery disease): Details from hospital stay: S/P left heart cath. Stable, nonobstructive. Continue dual antiplatelet therapy. Continue lifestyle modifications. Status: Acute Qualifiers: Coronary Disease-Associated Artery/Lesion type: [place] artery [place] vs. transplanted heart: [place] heart Associated angina: with unstable angina Qualified Code(s): I25.110 - Atherosclerotic heart disease of [place] coronary artery with unstable angina pectoris (3) Tobacco abuse: Details from hospital stay: Work on smoking cessation. Status: Acute (4) Hyperlipemia, mixed: Details from hospital stay: Continue statin 40 mg daily. Status: Acute Reason for Visit Reason for Visit: Unstable Magda Brief History: Mrs. Butcher is a very pleasant 60-year-old female with past medical history significant for CAD, type 2 diabetes with insulin pump, tobacco abuse. She has a hx of STEMI in which she was treated at [facility]. She underwent multiple PCI's with 6 stents. She has 4 stents in the RCA. According to the patient after the RCA was treated she went into cardiac arrest. She was brought back and proximal mid LAD was treated with a stent as well as the OM with another stent. She came into the clinic with complaints of worsening chest pain at rest. Hospital Course Hospital Course Patient was admitted for unstalbe angina. This chest pain started at the center of her chest and radiates down both arms. Initially it was exertional but now she is having resting symptoms. Blood pressures currently controlled. She underwent a left heart cath that showed nonobstructive coronary artery disease with patent previously placed stents. Echo was done that showed normal EF. She had an uneventful post cath course and was discharged home on amlodipine. Physical Exam Narrative: General: No apparent distress, healthy appearing, well nourished HENMT: normoceophalic Neck: No carotid bruit bilaterally Muskuloskeletal: Full ROM Respiratory: Normal respiratory effort, clear throughout all lung de le[place], no use of accessory muscles Cardio: No JVD, regular rate, regular rhythm, S1 S2 normal, no murmurs, peripheral pulses 2+ radial palpated bilaterally GI: Normal to inspection, nondistended Extremities: Full ROM, normal, normal capillary refill, no cyanosis, trace edema bilateral lower extremities Neuro: Alert and oriented x4, no focal motor deficits Psych: Affect normal, denies suicidal ideation, mental status grossly normal Skin: Radial cath site clean, dry, intact w/o s/s of hematoma Discharge Data Studies Completed and Pending Completed Studies During Hospitalization Category Date Time Status XR chest 1V portable [id number] Routine Exams 03/06/24 16:10 Completed CV. echo complete* [id number] Routine Ultrasound 03/06/24 16:01 Completed Pending at discharge Category Date Time Status MANAGER CRISIS request for service Routine Exams 03/07/24 13:37 Taken Radiology Impressions Chest X-Ray 03/06/24 16:10 IMPRESSION: No acute findings. Laboratory Results WBC 8.88 10^3/uL (3.29-11.43) 03/06/24 16:25 RBC 4.42 10^6/uL (3.85-5.65) 03/06/24 16:25 Hgb 14.00 g/dL (11.27-16.99) 03/06/24 16:25 Hct 40.9 % (36-47) 03/06/24 16:25 MCV 92.5 fl (85-98) 03/06/24 16:25 MCH 31.7 pg (27-33) 03/06/24 16:25 MCHC 34.2 g/dL (30-55) 03/06/24 16:25 RDW 13.4 % (12.1-15.1) 03/06/24 16:25 Plt Count 169 10^3/cmm (157-399) 03/06/24 16:25 MPV 9.8 fL (7.4-10.4) 03/06/24 16:25 Neut % (Auto) 53.4 % 03/06/24 16:25 Lymph % (Auto) 33.6 % 03/06/24 16:25 Gregory % (Auto) 8.6 % 03/06/24 16:25 Eos % (Auto) 3.8 % 03/06/24 16:25 Baso % (Auto) 0.3 % 03/06/24 16:25 Neut # (Auto) 4.74 10^3/uL (1.8-7.7) 03/06/24 16:25 Lymph # (Auto) 3.0 10^3/uL (0.8-4.8) 03/06/24 16:25 Gregory # (Auto) 0.8 10^3/uL (0.2-0.9) 03/06/24 16:25 Eos # (Auto) 0.3 10^3/uL (0.0-0.8) 03/06/24 16:25 Baso # (Auto) 0.0 10^3/uL (0.0-0.1) 03/06/24 16:25 Nucleated RBC % (auto) 0 % 03/06/24 16:25 Nucleated RBCs # 0.0 /100WBC 03/06/24 16:25 PT 12.40 SECONDS (12.1-14.9) 03/06/24 16:25 INR 0.90 (0.8-1.2) 03/06/24 16:25 APTT 28.0 SECONDS (23.9-36.7) 03/06/24 16:25 D-Dimer 0.42 ug/mLFEU (0-0.59) 03/06/24 16:25 Sodium 139 mmol/L (136-145) 03/06/24 16:25 Potassium 3.9 mmol/L (3.5-5.1) 03/06/24 16:25 Chloride 102 mmol/L (98-107) 03/06/24 16:25 Carbon Dioxide 26 mmol/L (22-29) 03/06/24 16:25 Anion Gap 14.9 (5-19) 03/06/24 16:25 BUN 11 mg/dL (6-20) 03/06/24 16:25 Creatinine 0.6 mg/dL (0.5-0.9) 03/06/24 16:25 GFR Calculation 102.3 mL/min (90-130) 03/06/24 16:25 Glucose 149 mg/dL (65-115) H 03/06/24 16:25 POC Glucose 228 mg/dL (70-110) H 03/07/24 11:17 Calculated Osmolality 290 mOsm/kg (285-295) 03/06/24 16:25 Calcium 9.7 mg/dL (8.5-10.5) 03/06/24 16:25 Troponin T Baseline 15 ng/L (0-10) H 03/06/24 16:25 Troponin T 120 Minute 14.85 ng/L (0-10) H 03/06/24 18:39 Delta Troponin T -0.15 ABS# (0-10) L 03/06/24 18:39 Troponin T Hi Sens 6Hr 15.15 ng/L (0-10) H 03/06/24 22:33 Troponin T Hi Sens 6Hr Delta 0.15 ng/L (0-12) 03/06/24 22:33 NT-Pro-B Natriuret Pep 194 pg/mL (0-125) H 03/06/24 16:25 Triglycerides 379 mg/dL (0-150) H 03/06/24 16:25 Cholesterol 157 mg/dL (0-200) 03/06/24 16:25 LDL Cholesterol, Calc 50 mg/dL (50-129) 03/06/24 16:25 HDL Cholesterol 31 mg/dL (60-100) L 03/06/24 16:25 LDL/HDL Ratio 1.61 RATIO (0.00-3.22) 03/06/24 16:25 Cholesterol/HDL Ratio 5.06 mg/dL (0.0-4.40) H 03/06/24 16:25 Procedures Performed left heart catheterization Vitals Last Vital Signs Temp 98.3 F 03/07/24 14:58 Pulse 82 03/07/24 14:58 Resp 17 03/07/24 14:58 BP 124/93 03/07/24 14:58 Pulse Ox 96 03/07/24 14:58 O2 Del Method Room Air 03/07/24 11:19 Discharge Plan Discharge Patient Disposition: Home Health Service Condition: Stable Prescriptions: New amlodipine 5 mg Tablet 5 mg PO DAILY 30 Days Qty: 30 0RF Continued aspirin [Aspirin Childrens] 81 mg tablet,chewable 81 mg PO DAILY atorvastatin 40 mg tablet 40 mg PO DAILY clopidogrel 75 mg tablet 75 mg PO DAILY metoprolol succinate 25 mg tablet extended release 24 hr 25 mg PO DAILY cholecalciferol (vitamin D3) 125 mcg (5,000 unit) capsule 125 mcg PO DAILY hydroxyzine HCl 50 mg tablet 50 mg PO TID pantoprazole 40 mg tablet,delayed release (DR/EC) 40 mg PO DAILY lisinopril 2.5 mg tablet 2.5 mg PO DAILY pregabalin 150 mg capsule 150 mg PO BID (DME) MiniMed 780G Insulin Pump Misc See Rx Instructions .ROUTE Qty: 1 0RF Rx Instructions: As directed insulin aspart U-100 [Novolog U-100 Insulin aspart] 100 unit/mL solution 250 unit continuous subcutaneous infusion DAILY Qty: 80 1RF Rx Instructions: 250 U via insulin pump daily oxybutynin chloride 10 mg tablet extended release 24hr 10 mg PO DAILY acetaminophen [Tylenol Arthritis Pain] 650 mg Tablet Extended Release 650 mg PO Q12H PRN (Reason: Pain) fluticasone propionate 50 mcg/actuation spray,suspension 1 - 2 spray INTRANASAL DAILY Discharge Orders: Discharge Order (Routine); Ordered 03/07/24 Ordered By: María Pearson Referrals: [facility] [Outside] María Pearson NP [Nurse Practitioner] - 03/16/24 1:00 pm Delfino Aguilar MD [Primary Care Provider] - 03/15/24 9:00 am Patient Instructions: Amlodipine (By mouth), Angina (DC), Coronary Artery Disease (DC), Opioid Safety, Post Angiogram Home Care Instructions Activity Restrictions/Additional Instructions: Educated patient on no lifing more than 5 pounds for [address] Monitor for and report increased swelling, fever 101 or greater immediately. Plan of Treatment: The plan of treatment is for patient to continue dual antiplatelet therapy, will add amlodipine for angina. Patient to see us in the clinic in 1 week for f/u. Continue lifestyle modifications. Discharge Attestations Time Spent in Discharge Care*: less than 30 min Quality Metrics Clinical Quality Measures [ No reported AMI, CVA or VTE this stay] Coding Level of Care Code Acute Code for Chg Fwd Diagnoses Worsening angina I20.0 Coronary artery disease involving [place] coronary artery of [place] heart with unstable angina pectoris I25.110 Coronary Disease-Associated Artery/Lesion type: [place] artery [place] vs. transplanted heart: [place] heart Associated angina: with unstable angina Tobacco abuse Z72.0 Hyperlipemia, mixed E78.2
--- NOTE | 2024-03-07 19:29 | PM.PN ---
Subjective Subjective: She was doing okay this morning, awaiting angiogram. No chest pain or pressure. Vitals/I&O/Wt Last Vital Signs Temp 98.3 F 03/07/24 14:58 Pulse 82 03/07/24 14:58 Resp 17 03/07/24 14:58 BP 124/93 03/07/24 14:58 Pulse Ox 96 03/07/24 14:58 O2 Del Method Room Air 03/07/24 11:19 03/07/24 03/07/24 03/07/24 06:59 14:59 22:59 Intake Total 480 / 480 Balance 480 / 480 Weight last 48 hrs Weight 90.066 kg Weight 92.079 kg Physical Exam Const: COMMON NORMALS: patient oriented x3 and alert GENERAL APPEARANCE: cooperative ORIENTATION/CONSCIOUSNESS: Yes awake HENMT: COMMON NORMALS: oropharynx normal Neck/C-Spine: COMMON NORMALS: no JVD Resp: COMMON NORMALS: normal respiratory effort and clear to auscultation bilaterally AUSCULTATION: clear to auscultation bilaterally Cardio: COMMON NORMALS: no JVD, regular rhythm, S1 normal heart sound present, S2 normal heart sound present and No murmurs present (Cardio) RHYTHM: regular rhythm HEART SOUNDS: S1 normal heart sound present and S2 normal heart sound present GI: COMMON NORMALS: Normal to inspection, nondistended, normoactive bowel sounds present, Soft to palpation and non-tender PALPATION: Yes Soft to palpation Extremity: COMMON NORMALS: no joint enlargement and no pedal edema Neuro: COMMON NORMALS: patient oriented x3 and moves all extremities SENSORIUM/ORIENTATION: Yes alert Skin: COMMON NORMALS: no rashes or lesions noted GENERAL SKIN EXAM: no rashes or lesions noted Data 03/06/24 16:25 03/06/24 16:25 A&P Assessment and plan (1) DM type 2 (diabetes mellitus, type 2): Reviewed POC glucose, chemistry, mildly elevated glucose here in 200s, insulin not changed to due to n.p.o. status. Subsequently underwent coronary angiography. As per prior discussion she is to discontinue subcutaneous insulin and continue insulin pump at discharge. Discussed with nursing, test case developer. Additionally some of her symptoms may be related to neuropathic pain. She does describe some bilateral throbbing in her hands. Although does state that this extends up her arms and into her shoulders. Continue pregabalin. 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 Pending coronary angiogram when seen this morning. Reviewed CBC, chemistry. Reviewed cardiology note, subsequently underwent procedure with finding of nonobstructive CAD, patent stents. Started on amlodipine, was doing well, without any new changes on echocardiogram, and was discharged home with follow-up by cardiology. (3) CAD (coronary artery disease): Continue antiplatelets, beta-benji, statin. Continue to optimize diabetes, hypertension control. Continue lisinopril. Qualifiers: Coronary Disease-Associated Artery/Lesion type: curyung artery [place] vs. transplanted heart: curyung heart Associated angina: with unstable angina Qualified Code(s): I25.110 - Atherosclerotic heart disease of curyung coronary artery with unstable angina pectoris Attestations Medical Necessity Statement*: Returning home. and High MDM includes amount and/or complexity of data reviewed/ordered [ previous or external records, resulted lab(s)/test(s), ordered lab(s)/test(s) and other healthcare professional discussion] as documented Diagnoses Type 2 diabetes mellitus with other specified complication, with long-term current use of insulin E11.69; Z79.4 Diabetes mellitus jail insulin use: with medical terminologist use Diabetes mellitus complication status: with other specified complication Worsening angina I20.0 Coronary artery disease involving curyung coronary artery of curyung heart with unstable angina pectoris I25.110 Coronary Disease-Associated Artery/Lesion type: curyung artery [place] vs. transplanted heart: curyung heart Associated angina: with unstable angina
== END 2024-03-07 14:59 | disposition home health service (06) | DRG 287 ==
PROVIDERS: Internal Medicine; Nurse Practitioner Family; Admitting Provider Internal Medicine; Family Provider Family Medicine; PCP Family Medicine; Visit Provider Internal Medicine
PROC: B2111ZZ Fluoroscopy of Multiple Coronary Arteries using Low Osmolar Contrast (ICD-10-PCS; principal; 2024-03-07 08:30)
DX: I25.110 Atherosclerotic heart disease of native coronary artery with unstable angina pectoris (principal); Z95.5 Presence of coronary angioplasty implant and graft; Z87.891 Personal history of nicotine dependence; E78.2 Mixed hyperlipidemia; E11.9 Type 2 diabetes mellitus without complications; Z96.41 Presence of insulin pump (external) (internal); I25.2 Old myocardial infarction; Z79.82 Long term (current) use of aspirin; Z79.02 Long term (current) use of antithrombotics/antiplatelets
CPT/HCPCS: 36415; 36416; 71045; 80048; 80061; 82962; 83880; 84484; 85025; 85378; 85610; 85730; 93005; 93306; 93458; 96372; 96374; 99152; C1769; C1887; C1894; J1644; J1815; J2250; J3490; J7030; Q0163; Q9967

== ENCOUNTER → 2024-03-16 13:00 | Outpatient (BNVA) | payer MEDICARE, MEDICAID, SELFPAY | PROVIDERS: PCP Family Medicine; Visit Provider Nurse Practitioner Family | DX: I25.110 Atherosclerotic heart disease of native coronary artery with unstable angina pectoris (principal); R55 Syncope and collapse; E78.2 Mixed hyperlipidemia; Z72.0 Tobacco use; E11.59 Type 2 diabetes mellitus with other circulatory complications; Z79.4 Long term (current) use of insulin | CPT/HCPCS: 99214 ==

== ENCOUNTER 2024-03-30 12:02 | Outpatient (CLI) | payer MEDICARE, MEDICAID, SELFPAY ==
--- NOTE | 2024-03-30 13:30 | USCV_ITS ---
Yuli Butcher Age: 59 Gender: F : 1965 Exam Date: 03/30/2024 12:31 Ordering Phys: María Pearson NP Technologist: TERRELL [place] [facility] [place]: Syncope Risk Factors: Previous Vascular Surgery: Right Brachial BP: / Left Brachial BP: / Right Left Velocity (cm/s) Spectral Plaque Velocity (cm/s) Spectral Plaque Syst/Diast Broadening Syst/Diast Broadening 109.30/21.70 Prox CCA 122.60/ 24.90 127.60/25.40 Mid CCA 98.40 / 23.50 71.00/ 14.40 Distal CCA 91.10 / 23.90 80.10/ 19.90 Prox ICA 56.40 / 12.60 73.90/ 18.80 Mid ICA 62.50 / 16.60 72.20/ 18.80 Distal ICA 79.80 / 26.50 109.30 ECA 92.90 1.10 ICA/CCA 0.60 Antegrade Vertebral Antegrade 44.00/ 8.90 cm/s 66.50/ 16.50 cm/s Tri Subclavian Tri 105.9 150.4 0 0 FINDINGS Comparison: none available. No significant elevation of systolic or diastolic velocities. Waveforms are normal. Minimal carotid atherosclerosis. CONCLUSIONS Bilateral ICA stenosis less than 50%. Minimal carotid atherosclerosis. Dr. Lorraine Batista DO (Electronically Signed) Final Date: 30 March 2024 16:02 S
== END 2024-03-30 12:03 | disposition home or self-care (01) ==
LOC: RAD 12:04
PROVIDERS: PCP Family Medicine; Visit Provider Nurse Practitioner Family
DX: R55 Syncope and collapse; Z09 Encounter for follow-up examination after completed treatment for conditions other than malignant neoplasm; E11.69 Type 2 diabetes mellitus with other specified complication; Z79.4 Long term (current) use of insulin; I25.110 Atherosclerotic heart disease of native coronary artery with unstable angina pectoris; E78.2 Mixed hyperlipidemia; N81.4 Uterovaginal prolapse, unspecified
CPT/HCPCS: 93880; 99214

== ENCOUNTER → 2024-04-11 12:47 | Outpatient (BNVA) | payer MEDICARE, MEDICAID, SELFPAY | PROVIDERS: PCP Family Medicine; Visit Provider Orthopaedic Surgery | DX: M54.2 Cervicalgia (principal) | CPT/HCPCS: 72050; 99204 ==

== ENCOUNTER 2024-04-24 08:34 | Observation (INO) | payer MEDICARE, MEDICAID, SELFPAY ==
--- NOTE | 2024-04-22 10:45 | ANES.PREANE2 ---
Pre-Anesthetic Assessment Height/Weight: Height 5 ft 5 in Preop Diagnosis: Cystocele Operation Date: 04/24/24 07:00 Proposed Procedures p Anterior Repair Anterior Colporrhaphy 09216, 40077, N81.10, N39.46(Not Applicable) - Rasheed Curry MD s Sling Single Incision Sling(Not Applicable) - Rasheed Curry MD Was Beta Beverly taken within 24 hours: Yes Was Clonidine taken within 24 hours: N/A Social No alcohol and No tobacco Exam alert, oriented x 3, clear to auscultation bilaterally and regular rate & rhythm Airway Submandibular: within normal limits Cervical ROM: within normal limits Mallampati: Class II Dentition: full Comments: Comments: Multiple missing teeth, denies any loose Anesthetic Plan ASA status: 3 Anesthesia: General Other: No prior issues with anesthesia in the past NPO since yesterday evening Patient has a history significant for hypertension on amlodipine, hydrochlorothiazide, lisinopril and metoprolol GERD on Protonix Type 2 diabetes on chronic insulin. Will check preop BS Current smoker Plavix held since Wednesday. Prior stents placed 3 years ago. Patient recently had a left cath demonstrating patent stents Labs 03/06/2024 reviewed and acceptable for procedure Recent EKG showing sinus rhythm with old inferior ID Holter monitor completed recently showing predominant sinus rhythm Plan for general anesthesia Medications/Allergies Home Medications ?Medication ?Instructions ?Recorded ?Confirmed ?Last Taken ?Type aspirin 81 mg chewable tablet 81 mg PO DAILY 10/22/21 04/20/24 04/17/24 History (Aspirin Childrens) cholecalciferol (vitamin D3) 125 125 mcg PO DAILY 10/22/21 04/20/24 04/19/24 History mcg (5,000 unit) capsule acetaminophen 650 mg 650 mg PO Q12H PRN Pain 03/06/24 04/20/24 Unknown History tablet,extended release (Tylenol Arthritis Pain) fluticasone propionate 50 1 - 2 spray intranasal DAILY 03/06/24 04/20/24 03/06/24 History mcg/actuation nasal spray,suspension hydroxyzine HCl 50 mg tablet 50 mg PO TID 03/06/24 04/20/24 03/06/24 08:00 History lisinopril 2.5 mg tablet 2.5 mg PO DAILY 03/06/24 04/20/24 04/20/24 History oxybutynin chloride 10 mg 10 mg PO DAILY 03/06/24 04/20/24 04/19/24 History tablet,extended release 24 hr pantoprazole 40 mg tablet,delayed 40 mg PO DAILY 03/06/24 04/20/24 04/20/24 History release amlodipine 5 mg tablet 5 mg PO DAILY #90 tabs 03/16/24 04/20/24 04/20/24 Rx atorvastatin 40 mg tablet 40 mg PO DAILY #90 tabs 03/16/24 04/20/24 04/19/24 Rx clopidogrel 75 mg tablet 75 mg PO DAILY #90 tabs 03/16/24 04/20/24 04/16/24 Rx hydrochlorothiazide 12.5 mg tablet 12.5 mg PO DAILY 03/16/24 04/20/24 04/19/24 History metoprolol succinate 25 mg 25 mg PO DAILY #90 tabs 03/16/24 04/20/24 04/20/24 Rx tablet,extended release 24 hr baclofen 10 mg tablet 10 mg PO DAILY 03/17/24 04/20/24 Unknown History insulin glargine U-300 conc 300 35 unit (0.1167 mL) SUBCUT DAILY 03/21/24 04/20/24 04/20/24 Rx unit/mL (3 mL) subcutaneous pen #6 mL (Toujeo Max U-300 SoloStar) insulin lispro 100 unit/mL 5 unit (0.05 mL) SUBCUT TID #15 mL 03/21/24 04/20/24 04/20/24 Rx subcutaneous pen (Admelog SoloStar U-100 Insulin lispro) Allergies Allergy/AdvReac Type Severity Reaction Status Date / Time codeine Allergy Unknown Unknown Verified 04/11/24 12:54 hydrocodone Allergy Unknown Unknown Verified 04/11/24 12:54 phenytoin (From Dilantin) Allergy Unknown Unknown Verified 04/11/24 12:54 sulfamethoxazole Allergy Unknown Unknown Verified 04/11/24 12:54 trimethoprim Allergy Unknown Unknown Verified 04/11/24 12:54 fentanyl Allergy ADR-Vomitin Verified 04/11/24 12:54 g Latex, Natural Rubber Allergy ALGY-Redness Verified 04/20/24 15:31 of Skin phenytoin sodium Allergy Unknown Unknown Uncoded 04/11/24 12:54 novalog Allergy ALGY-Joint Uncoded 04/20/24 15:40 Pain steroid Allergy Unknown Uncoded 04/20/24 15:40 [facility] Anesthesia Medical History CAD (coronary artery disease) Diabetes mellitus Family History Grandmother Cancer Enlarged heart Social History Smoking and tobacco/nicotine status: never used tobacco/nicotine Alcohol intake: never Substance/Drug Use: never Data Anesthesia Cardiac Studies: Echocardiogram 03/06/24 Cardiac Event Monitor 03/16/24
[2024-04-24] VITALS (17 sets, daily range): BP systolic 117–167; BP diastolic 66–88; PULSE 53–87; RESP 10–18; TEMP 36.1–36.8; O2SAT 93–97; BMI 31.6
[2024-04-24 06:22] LABS: Bilirubin Urine Negative (Negative); Blood Urine Negative (Negative); Glucose Urine UA Negative (Normal); Ketones Urine Negative (Negative); Leukocyte Esterase Urine Negative (Negative); Nitrate Urine Negative (Negative); Protein Urine 1+ (Negative); Specific Gravity, Urine 1.021 (1.005-1.030); Urine Appearance Clear (CLEAR); Urine Color Yellow (Yellow)
[2024-04-24 06:27] LABS: Add Urine Microscopic? YES; Bacteria Urine None Seen /hpf; RBC Urine 0-2 /hpf (0-2); Squamous Epithelial Cell Urine 0-5 /hpf (0-5); WBC Urine 0-5 /hpf (0-5)
[2024-04-24 06:31] LABS: Glucose Point of Care 247 mg/dL (70-110)
[2024-04-24] MEDS: sodium chloride 0.9% 1,000 ML 30 ML IV (06:36)
[2024-04-24] MEDS: scopolamine 1 mg PATCH 1 PATCH TRANSDERMA (06:36)
[2024-04-24] MEDS: metroNIDAZOLE IV 500 MG/100 ML PREMIX 100 MG IV (06:36)
[2024-04-24 06:40] LABS: Basophils % 0.4 %; Eosinophils # 0.4 10^3/uL (0.0-0.8); Eosinophils % 4.4 %; Hematocrit 41.9 % (36-47); Lymphocytes # 3.2 10^3/uL (0.8-4.8); Lymphocytes % 31.7 %; Mean Corpuscular HGB Conc 34.8 g/dL (30-55); Mean Corpuscular Hemoglobin 31.3 pg (27-33); Mean Corpuscular Volume 89.7 fl (85-98); Mean Platelet Volume 10.2 fL (7.4-10.4); Monocytes # 0.9 10^3/uL (0.2-0.9); Monocytes % 8.8 %; Neutrophils % 54.3 %; Nucleated Red Blood Cells % 0 %; Platelet Count 167 10^3/cmm (157-399); Red Blood Count 4.67 10^6/uL (3.85-5.65); Red Cell Distribution Width 12.4 % (12.1-15.1); White Blood Count 9.94 10^3/uL (3.29-11.43)
[2024-04-24 06:55] LABS: Alanine Aminotransferase 32 U/L (0-33); Albumin Level 4.1 g/dL (3.5-5.2); Alkaline Phosphatase 75 U/L (35-105); Aspartate Amino Transferase 20 U/L (0-32); Blood Urea Nitrogen 12 mg/dL (6-20); Calcium 9.2 mg/dL (8.5-10.5); Carbon Dioxide 22 mmol/L (22-29); Chloride 101 mmol/L (98-107); Globulin 2.9 g/dL (1.3-4.6); Glomerular Filtration Rate 85.6 mL/min (90-130); Glucose 241 mg/dL (65-115); Osmolality Calculated 294 mOsm/kg (285-295); Sodium 138 mmol/L (136-145); Total Bilirubin 0.2 mg/dL (0.15-1.2)
--- NOTE | 2024-04-24 07:02 | W.PM.OPSUD ---
Surgery/Procedure H&P Update DATE OF PROCEDURE: April 24, 2024 DATE H&P PERFORMED: 03/17/24 H&P UPDATE INFORMATION: I have reviewed H&P completed within last 30 days, I have examined patient prior to procedure and No changes to prior documentation PREOP DIAGNOSIS: Cystocele PLANNED PROCEDURE: Operation Date: 04/24/24 07:00 Proposed Procedures p Anterior Repair Anterior Colporrhaphy 05883, 88747, N81.10, N39.46(Not Applicable) - Rasheed Curry MD s Sling Single Incision Sling(Not Applicable) - Rasheed Curry MD
[2024-04-24] MEDS: insulin regular-human 100 units/1 mL 10 UNIT IVP (07:14)
[2024-04-24] MEDS: ceFAZolin 2,000 mg SDV 2000 MG IVP (07:25)
[2024-04-24] MEDS: lidocaine-epi 2% PF 1:200,000 20 mL SDV XX (07:43)
--- NOTE | 2024-04-24 08:17 | W.PM.BPON ---
Date of Procedure: 04/24/24 Surgeon: Rasheed Curry MD Nocturnist Physician(s): Procedure(s) performed: Anterior colporrhaphy and mid urethral sling Findings of the procedure(s): Cystocele Estimated blood loss: 30 mL Specimen(s) removed: Post-operative diagnosis: Status post anterior colporrhaphy and mid urethral sling
--- NOTE | 2024-04-24 08:18 | P.OP_ITS ---
Operative Report Date of procedure: April 24, 2024 Pre-op diagnosis: Cystocele Mixed urinary incontinence Post-op diagnosis: same Post-op findings: Cystocele Procedure done: Anterior colporrhaphy Mid urethral sling Cystoscopy Surgeon: Rasheed Curry MD Estimated blood loss (mL): 30 IV fluids (mL): 800 Urine output (mL): 300 Procedure: After obtaining informed consent, the patient was taken to the operating room and placed in the supine position, given general anesthesia, and prepped and draped in sterile fashion. The abdomen, vulva and vagina were prepped and draped in a sterile manner. A time out procedure was performed. The anterior vaginal mucosa beneath the midurethra was infiltrated with 2% lidocaine with epinephrine. A vertical midline incision was made beneath the midurethra, nearly 1.5 cm length. Careful submucosal dissection was performed bilaterally up to the interior portion of the inferior pubic ramus. The insertion of adductor longus tendon on the patient?s pubic ramus was identified as reference land stephani. Palpated the notch along the internal edge of ischiopubic ramus where the adductor longus tendon and the inferior pubic ramus meet. The Altis single incision sling (SIS) was selected. Then the needle of the SIS inserted aiming at the location of this notch. One of the integrated self-fixating tips place onto the needle by sliding it over the end of the needle. The needle/sling assembly was inserted toward the location of identified reference notch making sure that the flat of the handle is perpendicular to the desired path. The needle was tra cked along the posterior surface of the ischiopubic ramus until the midline stephani on the mesh is approximately at the midline position under the urethra. The needle was removed and the same was repeated on the contralateral side until the appropriate sling tension under the urethra was achieved ensuring that the mesh lays flat. The needle was removed and vaginal incision was closed in a running interlocking fashion with 2-0 Vicryl. An anterior repair was then performed. The medial portion of the anterior vaginal wall was grasped with two Allis clamps and the mucosa was infiltrated with the previous 2% lidocaine with epinephrine solution. The Metzenbaum scissors were used to dissect and undermine a plane medially up to the point of reflexion anteriorly of the bladder. The vaginal mucosa was incised medially. This tissue was then grasped with Komal clamps and dissected away with a combination of sharp and blunt dissection on both sides. A suture of 2-0 vicryl was then used to connect the lateral pubovesical connective tissue on either side together in a series of bites that was repeated in two layers. The excess vaginal mucosa was trimmed and the incision repaired with a locked suture of 0 vicryl. Then the Galloway catheter was removed and cystoscope was inserted. The bladder was filled with sterile water. Complete evaluation of the bladder mucosa was performed noting no lacerations, dimpling, tears, bleeding of the mucosa or muscular layers. Both ureteral orifices were identified. Prompt excretion of urine from both ureteral orifices was noted. Cystoscope was withdrawn. The Galloway catheter was replaced. Excellent hemostasis was obtained. A vaginal pack is placed for overnight postoperative support for the vaginal tissues and closure of vaginal incisions. Sponge, lap, needle, and instrument counts were correct times three. The patient was taken to the recovery room, awake and in stable condition.
[2024-04-24 08:43] LABS: Glucose Point of Care 165 mg/dL (70-110)
--- NOTE | 2024-04-24 08:55 | ANE.PACU2 ---
Inpatient post-anesthesia follow up: Airway intact: Yes Vital signs: Temperature 98 F Pulse Rate 66 Respiratory Rate 16 Blood Pressure 125/68 Pulse Oximetry 94 Oxygen Delivery Me thod Room Air Oxygen Flow Rate Fraction of Inspir ed Oxygen Hydration adequate: Yes Nausea and vomiting: No Pain level: 1 Mental status: Baseline
--- NOTE | 2024-04-24 09:07 | PC.NURSE ---
09 - accepted into OB 12 with Courtney RN at side - notified Courtney of Vaginal packing - pt alert and in no distress upon this nurse leaving room - BP 142/78 - pulse 61 - 02 93% - temp 98.1
[2024-04-24] MEDS: docusate sodium 100 mg Capsule PO ×2 (09:44→18:03)
[2024-04-24] MEDS: baclofen 10 mg Tablet PO (09:44)
[2024-04-24] MEDS: pantoprazole DR 40 mg Tablet PO (09:45)
[2024-04-24] MEDS: amlodipine 5 mg Tablet PO (09:45)
[2024-04-24] MEDS: hydroCHLOROthiazide 25 mg Tablet 12.5 MG PO (09:45)
[2024-04-24] MEDS: aspirin 81 mg Chew Tablet PO (09:46)
[2024-04-24] MEDS: atorvastatin 40 mg Tablet PO (09:46)
[2024-04-24] MEDS: clopidogrel 75 mg Tablet PO (09:46)
[2024-04-24] MEDS: dextrose 5%-lactated ringers 1,000 ML 125 ML IV (09:47)
[2024-04-24 11:16] LABS: Glucose Point of Care 279 mg/dL (70-110)
[2024-04-24] MEDS: lactated ringers 1,000 ML 125 ML IV ×2 (11:37→21:29)
[2024-04-24] MEDS: insulin lispro 100 unit/1 mL SUBCUT ×3 (11:46→21:03)
[2024-04-24] MEDS: ketorolac 30 mg/mL INJ IVP ×2 (13:55→20:08)
[2024-04-24 18:12] LABS: Glucose Point of Care 251 mg/dL (70-110)
[2024-04-24] MEDS: hyDROXYzine 25 mg Capsule 50 MG PO (20:08)
[2024-04-24] MEDS: simethicone 80 mg Chew PO (20:08)
[2024-04-24 20:21] LABS: Glucose Point of Care 262 mg/dL (70-110)
[2024-04-24] MEDS: sodium chloride 0.9% 500 ML IV (20:23)
[2024-04-25] MEDS: ketorolac 30 mg/mL INJ IVP ×2 (02:16→07:22)
[2024-04-25 05:00] VITALS: BP 137/72; PULSE 66; RESP 18; TEMP 36.6; O2SAT 94
--- NOTE | 2024-04-25 05:26 | PC.NURSE ---
Vaginal packing removed. Patient tolerated the procedure. No bleeding noted.
[2024-04-25 05:29] LABS: Hematocrit 37.2 % (36-47); Mean Corpuscular HGB Conc 34.1 g/dL (30-55); Mean Corpuscular Hemoglobin 31.2 pg (27-33); Mean Corpuscular Volume 91.4 fl (85-98); Mean Platelet Volume 10.4 fL (7.4-10.4); Platelet Count 141 10^3/cmm (157-399); Red Blood Count 4.07 10^6/uL (3.85-5.65); Red Cell Distribution Width 12.3 % (12.1-15.1); White Blood Count 8.43 10^3/uL (3.29-11.43)
[2024-04-25] MEDS: insulin lispro 100 unit/1 mL SUBCUT (07:22)
[2024-04-25 07:35] LABS: Glucose Point of Care 264 mg/dL (70-110)
[2024-04-25] MEDS: oxybutynin chloride XL 5 MG TABLET 10 MG PO (08:56)
[2024-04-25] MEDS: lisinopril 2.5 mg Tablet PO (08:56)
[2024-04-25] MEDS: metoprolol succinate ER (24 HR) 25 mg Tablet PO (08:56)
[2024-04-25] MEDS: aspirin 81 mg Chew Tablet PO (08:57)
[2024-04-25] MEDS: clopidogrel 75 mg Tablet PO (08:57)
[2024-04-25] MEDS: pantoprazole DR 40 mg Tablet PO (08:57)
[2024-04-25] MEDS: docusate sodium 100 mg Capsule PO (08:57)
[2024-04-25] MEDS: atorvastatin 40 mg Tablet PO (08:57)
[2024-04-25] MEDS: amlodipine 5 mg Tablet PO (08:59)
[2024-04-25] MEDS: hydroCHLOROthiazide 25 mg Tablet 12.5 MG PO (08:59)
[2024-04-25] MEDS: cholecalciferol (vitamin D3) 5,000 unit Tablet 5000 UNIT PO (08:59)
[2024-04-25] MEDS: hyDROXYzine 25 mg Capsule 50 MG PO (08:59)
[2024-04-25] MEDS: insulin glargine 100 units/1 mL 35 UNIT SUBCUT (09:01)
[2024-04-25 09:05] VITALS: BP 136/80; PULSE 68; RESP 17; TEMP 36.6; O2SAT 96
[2024-04-25] MEDS: ondansetron 2 mg/ML SDV 2 mL 4 MG IVP (11:28)
--- NOTE | 2024-04-25 11:36 | PM.OBGYDC ---
Discharge Providers NEWSPAPER DELIVERER Date of Admission: 04/24/24 08:34 Date of Discharge: 04/25/24 Attending Provider at Admission: Rasheed Curry MD Attending Provider at Discharge: Rasheed Curry MD Primary Care Provider: Delfino Aguilar MD Reason for Visit Reason for Visit: N39.46 Hospital Course Hospital Course Mrs. Butcher 59-year-old female status post anterior colporrhaphy and mid urethral sling postoperative day 1. She is afebrile and hemodynamically stable. Tolerating diet well. Overnight observation was uneventful. PVR within normal limits. Ambulating without difficulty. Tolerating diet well. She was counseled regarding pelvic rest for 6 weeks (no sex, no tampons, no vaginal douches). Return to the emergency room if any fever, increased bleeding or pain. Physical Exam Narrative: GA: Alert and oriented ?3. HEENT: WNL. Heart: Regular rate and rhythm. Lungs: Clear to auscultation bilaterally. Abdomen: Bowel sounds present, nontender. LABORER CUTTING TOOL: spotting bleeding. Extremities: No edema, no cyanosis, no calves pain. Urinary Catheter Management: Galloway Latex Free: Cath Placed During This Visit: yes, but has since been removed by the nurse Reason for Continuing Indwelling Catheter: Decision to DC Catheter Urinary Catheter Date of Insertion: 04/24/24 Urinary Catheter Time of Insertion: 07:39 Date Urinary Catheter Removed: 04/25/24 Time Urinary Catheter Discontinued: 05:20 History History History 0 Term 0 0 Miscarriages/Ectopic 0 Living Children 0 Discharge Data Studies Completed and Pending Laboratory Results WBC 8.43 10^3/uL (3.29-11.43) 04/25/24 05:15 RBC 4.07 10^6/uL (3.85-5.65) 04/25/24 05:15 Hgb 12.70 g/dL (11.27-16.99) 04/25/24 05:15 Hct 37.2 % (36-47) 04/25/24 05:15 MCV 91.4 fl (85-98) 04/25/24 05:15 MCH 31.2 pg (27-33) 04/25/24 05:15 MCHC 34.1 g/dL (30-55) 04/25/24 05:15 RDW 12.3 % (12.1-15.1) 04/25/24 05:15 Plt Count 141 10^3/cmm (157-399) L 04/25/24 05:15 MPV 10.4 fL (7.4-10.4) 04/25/24 05:15 Neut % (Auto) 54.3 % 04/24/24 06:25 Lymph % (Auto) 31.7 % 04/24/24 06:25 [place] % (Auto) 8.8 % 04/24/24 06:25 Eos % (Auto) 4.4 % 04/24/24 06:25 Baso % (Auto) 0.4 % 04/24/24 06:25 Neut # (Auto) 5.40 10^3/uL (1.8-7.7) 04/24/24 06:25 Lymph # (Auto) 3.2 10^3/uL (0.8-4.8) 04/24/24 06:25 [place] # (Auto) 0.9 10^3/uL (0.2-0.9) 04/24/24 06:25 Eos # (Auto) 0.4 10^3/uL (0.0-0.8) 04/24/24 06:25 Baso # (Auto) 0.0 10^3/uL (0.0-0.1) 04/24/24 06:25 Nucleated RBC % (auto) 0 % 04/24/24 06:25 Nucleated RBCs # 0.0 /100WBC 04/24/24 06:25 Sodium 138 mmol/L (136-145) 04/24/24 06:25 Potassium 4.0 mmol/L (3.5-5.1) 04/24/24 06:25 Chloride 101 mmol/L (98-107) 04/24/24 06:25 Carbon Dioxide 22 mmol/L (22-29) 04/24/24 06:25 Anion Gap 19.0 (5-19) 04/24/24 06:25 BUN 12 mg/dL (6-20) 04/24/24 06:25 Creatinine 0.7 mg/dL (0.5-0.9) 04/24/24 06:25 GFR Calculation 85.6 mL/min (90-130) L 04/24/24 06:25 Glucose 241 mg/dL (65-115) H 04/24/24 06:25 POC Glucose 264 mg/dL (70-110) H 04/25/24 07:25 Calculated Osmolality 294 mOsm/kg (285-295) 04/24/24 06:25 Calcium 9.2 mg/dL (8.5-10.5) 04/24/24 06:25 Total Bilirubin 0.2 mg/dL (0.15-1.2) 04/24/24 06:25 AST 20 U/L (0-32) 04/24/24 06:25 ALT 32 U/L (0-33) 04/24/24 06:25 Alkaline Phosphatase 75 U/L (35-105) 04/24/24 06:25 Total Protein 7.0 g/dL (6.6-8.7) 04/24/24 06:25 Albumin 4.1 g/dL (3.5-5.2) 04/24/24 06:25 Globulin 2.9 g/dL (1.3-4.6) 04/24/24 06:25 Urine Color Yellow (Yellow) 04/24/24 06:05 Urine Appearance Clear (CLEAR) 04/24/24 06:05 Urine pH 5.0 (5-7) 04/24/24 06:05 Ur Specific [place] 1.021 (1.005-1.030) 04/24/24 06:05 Urine Protein 1+ (Negative) A 04/24/24 06:05 Urine Glucose (UA) Negative (Normal) 04/24/24 06:05 Urine Ketones Negative (Negative) 04/24/24 06:05 Urine Blood Negative (Negative) 04/24/24 06:05 Urine Nitrate Negative (Negative) 04/24/24 06:05 Urine Bilirubin Negative (Negative) 04/24/24 06:05 Urine Urobilinogen 1.0 mg/dL (Negative) 04/24/24 06:05 Ur Leukocyte Esterase Negative (Negative) 04/24/24 06:05 Urine RBC 0-2 /hpf (0-2) 04/24/24 06:05 Urine WBC 0-5 /hpf (0-5) 04/24/24 06:05 Ur Squamous Epith Cells 0-5 /hpf (0-5) 04/24/24 06:05 Amorphous Sediment Not Reportable 04/24/24 06:05 Urine Bacteria None seen /hpf (NONE) 04/24/24 06:05 Hyaline Casts 0.40 /lpf 04/24/24 06:05 Blood Type A Positive 04/24/24 06:25 Rho(D) Type Rh positive 04/24/24 06:25 Antibody Screen Negative 04/24/24 06:25 Vitals Last Vital Signs Temp 97.9 F 04/25/24 09:05 Pulse 68 04/25/24 09:05 Resp 17 04/25/24 09:05 BP 136/80 04/25/24 09:05 Pulse Ox 96 04/25/24 09:05 O2 Del Method Room Air 04/25/24 09:05 Results Labs OB ([facility]): Blood Type A Positive 04/24/24 Antibody Screen Negative 04/24/24 Hct 37.2 % (36-47) 04/25/24 Hgb 12.70 g/dL (11.27-16.99) 04/25/24 Rho(D) Type Rh positive 04/24/24 Plt Count 141 10^3/cmm (157-399) L 04/25/24 Discharge Plan Discharge Patient Disposition: Home Condition: Stable Prescriptions: New acetaminophen 325 mg capsule 325 mg PO Q4H PRN (Reason: fever or pain) Qty: 60 0RF ibuprofen 800 mg tablet 800 mg PO TID PRN (Reason: pain) Qty: 60 0RF Continued aspirin [Aspirin Childrens] 81 mg tablet,chewable 81 mg PO DAILY cholecalciferol (vitamin D3) 125 mcg (5,000 unit) capsule 125 mcg PO DAILY baclofen 10 mg tablet 10 mg PO DAILY hydroxyzine HCl 50 mg tablet 50 mg PO TID pantoprazole 40 mg tablet,delayed release (DR/EC) 40 mg PO DAILY lisinopril 2.5 mg tablet 2.5 mg PO DAILY hydrochlorothiazide 12.5 mg tablet 12.5 mg PO DAILY clopidogrel 75 mg tablet 75 mg PO DAILY Qty: 90 3RF atorvastatin 40 mg tablet 40 mg PO DAILY Qty: 90 0RF metoprolol succinate 25 mg tablet extended release 24 hr 25 mg PO DAILY Qty: 90 0RF amlodipine 5 mg tablet 5 mg PO DAILY Qty: 90 0RF insulin glargine U-300 conc [Toujeo Max U-300 SoloStar] 300 unit/mL (3 mL) insulin pen 35 unit SUBCUT DAILY Qty: 6 1RF insulin lispro [Admelog SoloStar U-100 Insulin] 100 unit/mL insulin pen 5 unit SUBCUT TID Qty: 15 1RF oxybutynin chloride 10 mg tablet extended release 24hr 10 mg PO DAILY acetaminophen [Tylenol Arthritis Pain] 650 mg Tablet Extended Release 650 mg PO Q12H PRN (Reason: Pain) fluticasone propionate 50 mcg/actuation spray,suspension 1 - 2 spray INTRANASAL DAILY Discharge Orders: Discharge Order (Routine); Ordered 04/25/24 Ordered By: Rasheed Curry Referrals: Gary Rothman MD [Physician] - 06/05/24 9:45 am Janel Barnes APN, WHNP [Nurse Practitioner] - 05/16/24 9:45 am Discharge Diet: Soft Mechanical Discharge Activity: Limit activity as instructed Patient Instructions: Acute Wound Care (DC), Bladder Sling for Women (GEN), Anterior Vaginal Repair (GEN), Opioid Safety, Post Anesthesia Care Activity Restrictions/Additional Instructions: 1. Please call [facility] on next working day to make your post-operative appointment in 2 weeks. 2. Please stay home until you come back to the clinic on first post-hospatilization check up. 3. Please follow instructions on your medications CAREFULLY. 4. If you have abdominal incision, do not cover it unless dressing is necessary because of drainage. OK to shower, but avoid bath. Leave steri-strips until they fall off. If they are still on one week after surgery, you may remove them. 5. If you had vaginal surgery or vaginal repair, Dr. Curry may instruct you to take SITZ bath. 6. Yellow, blood tinged odorous vaginal discharge is usually normal after hysterectomy or vaginal surgeries. 7. No SEXUAL INTERCOURSE, tampons, or douches until you are completely released from the post-operative care. 8. Avoid constipation by eating right and maybe using some Metamucil or Milk of Magnesia. 9. All prescription refills are given during the working hours. Please do no wait till it runs out. Call the clinic at [phone] before your medication runs out. The clinic will get in touch with your doctor to prescribe medications if necessary. 10. Please remain within 40 mile radius from our hospital because emergencies do happen now and then during the post-operative period. 11. If you have stairs at home, take one step at a time slowly and minimize the number of trips. It helps to stay in one floor for the next few days. No lifting except what you can lift by one hand until you are released from the post-operative care. 12. Driving is discouraged until you are well healed. It may be 3-4 weeks before you feel strong enough to drive. You should be able to turn and look through the rear window without pain and you should be able to push the brake pedal very hard without pain before you drive. No fast rules, but SAFETY should be your primary concern. DO NOT drive if you are on sedating medications such as narcotics. 13. Call the clinic (during working hours) to make urgent appointment or go to the Emergency room, if any of the following occurs: i. Vaginal bleeding becomes heavy, more than a period. ii. Incision becomes red and sore, or drains pus. iii. Your TEMPERATURE is over 100.4F or you have chill. iv. IV site becomes red and swollen (a little ``knot?? is usually OK) v. Persistent nausea and vomiting vi. Persistent constipation or diarrhea vii. Rash or allergic reaction to medications. Discharge Attestations NEWSPAPER DELIVERER Time Spent in Discharge Care*: greater than 30 min Coding Level of Care Code Acute Code for Chg Fwd
[2024-04-25 11:49] VITALS: BP 139/69; PULSE 72; RESP 16; TEMP 36.9
[2024-04-25 11:50] VITALS: BP 139/69; PULSE 72; RESP 17; TEMP 36.9; O2SAT 98
== END 2024-04-25 11:50 | disposition home or self-care (01) ==
LOC: OBGYN 08:34
PROVIDERS: Admitting Provider Obstetrics & Gynecology; PCP Family Medicine; Visit Provider Obstetrics & Gynecology
PROC: 0JQC0ZZ Repair Pelvic Region Subcutaneous Tissue and Fascia, Open Approach (ICD-10-PCS; CPT 57240; principal; 2024-04-24 07:00)
PROC: (CPT 57288; 2024-04-24 07:00)
DX: N81.10 Cystocele, unspecified (principal); N39.46 Mixed incontinence; D25.1 Intramural leiomyoma of uterus; D25.0 Submucous leiomyoma of uterus; D25.2 Subserosal leiomyoma of uterus; E11.9 Type 2 diabetes mellitus without complications; I25.10 Atherosclerotic heart disease of native coronary artery without angina pectoris; Z79.899 Other long term (current) drug therapy; Z79.82 Long term (current) use of aspirin; Z79.4 Long term (current) use of insulin; Z88.5 Allergy status to narcotic agent; Z88.8 Allergy status to other drugs, medicaments and biological substances; Z91.040 Latex allergy status; Z88.2 Allergy status to sulfonamides
CPT/HCPCS: 57240; 57288; 36415; 36416; 51798; 80053; 81001; 82962; 85025; 85027; 86850; 86900; 96372; A4216; C1713; G0378; J0690; J1815; J1885; J2405; J2704; J3490; J7030; J7040; J7120; J7121

== ENCOUNTER → 2024-06-20 12:28 | Outpatient (BNVA) | payer MEDICARE, MEDICAID, SELFPAY | PROVIDERS: PCP Family Medicine; Visit Provider Internal Medicine | DX: I25.110 Atherosclerotic heart disease of native coronary artery with unstable angina pectoris (principal); Z72.0 Tobacco use; E78.2 Mixed hyperlipidemia; E11.59 Type 2 diabetes mellitus with other circulatory complications; Z79.4 Long term (current) use of insulin | CPT/HCPCS: 99214 ==

== ENCOUNTER → 2024-08-24 13:17 | Outpatient (BNVA) | payer MEDICARE, MEDICAID, SELFPAY | PROVIDERS: PCP Family Medicine; Visit Provider Student in an Organized Health Care Education/Training Program | DX: Z12.11 Encounter for screening for malignant neoplasm of colon (principal) | CPT/HCPCS: 99024; 99204 ==

== ENCOUNTER → 2024-10-05 07:49 | Outpatient (BNVA) | payer MEDICARE, MEDICAID, SELFPAY | PROVIDERS: PCP Family Medicine; Visit Provider Internal Medicine | DX: E11.69 Type 2 diabetes mellitus with other specified complication (principal); E78.2 Mixed hyperlipidemia; Z79.4 Long term (current) use of insulin | CPT/HCPCS: 36415; 80053; 84681; 86337; 86341; 99214 ==

== ENCOUNTER 2024-10-10 09:39 | Day surgery (SDC) | payer MEDICARE, MEDICAID, SELFPAY ==
[2024-10-10 10:14] VITALS: BP 139/78; PULSE 70; RESP 18; TEMP 36.3; O2SAT 98
--- NOTE | 2024-10-10 11:27 | ANES.PREANE2 ---
Pre-Anesthetic Assessment Height/Weight: Height 1.65 m Temp Pulse Resp BP Pulse Ox O2 Del Method 97.4 F L 70 18 139/78 98 Room Air 10/10/24 10:14 10/10/24 10:14 10/10/24 10:14 10/10/24 10:14 10/10/24 10:14 10/10/24 10:14 Operation Date: 10/10/24 11:30 Proposed Procedures p Colonoscopy [id number] G0105, Z12.11(Not Applicable) - Félix Hopkins MD Familial anesthetic complications: none Was Beta Beverly taken within 24 hours: Yes Was Clonidine taken within 24 hours: N/A Last intake: Intake Last Liquid Date 10/09/24 Last Liquid Time 22:00 Last Solid Date 10/08/24 Last Solid Time 22:00 Social No alcohol quit smoking 1 year ago Exam alert and oriented x 3 Airway Submandibular: within normal limits Cervical ROM: within normal limits Mallampati: Class II Comments: Comments: poor dentition, mulitple missing History/ROS No significant history except as noted Pulmonary None reported CV/HEM Coronary Artery Disease and Myocardial Infarction (6 stents 3 years ago, no issues or CP currently) None reported Hepatic None reported GI Gastroesophageal Reflux Disease Metabolic Diabetes Mellitus and Hyperlipidemia [facility] [place] None reported Neuropsych None reported Anesthetic Plan ASA status: 3 Anesthesia: Anesthesia Evaluation and MAC Medications/Allergies Home Medications ?Medication ?Instructions ?Recorded ?Confirmed ?Last Taken ?Type aspirin 81 mg chewable tablet 81 mg PO DAILY 10/22/21 10/05/24 10/04/24 06:00 History (Aspirin Childrens) cholecalciferol (vitamin D3) 125 125 mcg PO DAILY 10/22/21 10/05/24 10/09/24 06:00 History mcg (5,000 unit) capsule acetaminophen 650 mg 650 mg PO Q12H PRN Pain 03/06/24 10/05/24 10/09/24 06:00 History tablet,extended release (Tylenol Arthritis Pain) fluticasone propionate 50 1 - 2 spray intranasal DAILY PRN 03/06/24 10/05/24 10/09/24 06:00 History mcg/actuation nasal Congestion spray,suspension hydroxyzine HCl 50 mg tablet 50 mg PO BEDTIME 03/06/24 10/05/24 10/09/24 06:00 History lisinopril 2.5 mg tablet 2.5 mg PO DAILY 03/06/24 10/05/24 10/05/24 History oxybutynin chloride 10 mg 10 mg PO DAILY 03/06/24 10/05/24 10/09/24 06:00 History tablet,extended release 24 hr pantoprazole 40 mg tablet,delayed 40 mg PO DAILY 03/06/24 10/05/24 10/09/24 06:00 History release atorvastatin 40 mg tablet 40 mg PO DAILY #90 tabs 03/16/24 10/05/24 10/09/24 06:00 Rx clopidogrel 75 mg tablet 75 mg PO DAILY #90 tabs 03/16/24 10/05/24 10/04/24 06:00 Rx hydrochlorothiazide 12.5 mg tablet 12.5 mg PO DAILY 03/16/24 10/05/24 10/09/24 06:00 History metoprolol succinate 25 mg 25 mg PO DAILY #90 tabs 03/16/24 10/05/24 10/10/24 06:00 Rx tablet,extended release 24 hr acetaminophen 325 mg capsule 325 mg PO Q4H PRN fever or pain 04/25/24 10/05/24 Unknown Rx #60 caps amlodipine 5 mg tablet 5 mg PO BID #180 tabs 06/20/24 10/05/24 10/10/24 06:00 Rx metoclopramide HCl 10 mg tablet 10 mg PO DAILY 08/24/24 10/05/24 10/09/24 06:00 History (Reglan) estradiol 0.01% (0.1 mg/gram) 1 appful vaginal DAILY #42.5 grams 09/06/24 10/05/24 10/09/24 06:00 Rx vaginal cream (Estrace) insulin glargine U-300 conc 300 30 unit SUBCUT DAILY 10/05/24 10/05/24 10/05/24 History unit/mL (3 mL) subcutaneous pen (Toujeo Max U-300 SoloStar) insulin lispro 100 unit/mL 15 - 30 unit SUBCUT TID 10/05/24 10/05/24 10/05/24 History subcutaneous pen (Admelog SoloStar U-100 Insulin lispro) Allergies Allergy/AdvReac Type Severity Reaction Status Date / Time codeine Allergy Unknown Unknown Verified 10/10/24 10:20 hydrocodone Allergy Unknown Unknown Verified 10/10/24 10:20 phenytoin (From Dilantin) Allergy Unknown Unknown Verified 10/10/24 10:20 sulfamethoxazole Allergy Unknown Unknown Verified 10/10/24 10:20 trimethoprim Allergy Unknown Unknown Verified 10/10/24 10:20 fentanyl Allergy ADR-Vomitin Verified 10/10/24 10:20 g Latex, Natural Rubber Allergy ALGY-Redness Verified 10/10/24 10:20 of Skin phenytoin sodium Allergy Unknown Unknown Uncoded 10/10/24 10:20 novalog Allergy ALGY-Joint Uncoded 10/10/24 10:20 Pain steroid Allergy Unknown Uncoded 10/10/24 10:20 Current Medications Generic Name Dose Route Start Last Admin Trade Name Freq PRN Reason Stop Dose Admin Sodium Chloride 1,000 mls @ 15 mls/hr 10/10/24 10:14 10/10/24 10:30 Sodium Chloride 0.9% IV 10/11/24 10:13 15 mls/hr .Q24H PRN Administration COLONOSCOPY FLUIDS PFSH Anesthesia Medical History CAD (coronary artery disease) Diabetes mellitus Surgical History S/P anterior colporrhaphy (~04/24/24) with midurethral sling and cystoscopy performed by Patricio at [facility] for cystocele and mixed urinary incontinence. Family History Grandmother Cancer Enlarged heart Social History Smoking and tobacco/nicotine status: unknown if used tobacco/nicotine Alcohol intake: never Substance/Drug Use: never Data Anesthesia Cardiac Studies: Echocardiogram 03/06/24 Cardiac Event Monitor 03/16/24
--- NOTE | 2024-10-10 11:47 | W.PM.OPSFHP ---
Same Day Surgery H&P Indication for Procedure/HPI DATE OF PROCEDURE: October 10, 2024 CHIEF COMPLAINT/INDICATIONFOR SURGICAL PROCEDURE: screening colonoscopy PREOP DIAGNOSIS: screening colonoscopy PLANNED PROCEDURE: Operation Date: 10/10/24 11:30 Proposed Procedures p Colonoscopy [id number] G0105, Z12.11(Not Applicable) - Félix Hopkins MD Medications/Allergies* Home Medications ?Medication ?Instructions ?Recorded ?Confirmed ?Type aspirin 81 mg chewable tablet 81 mg PO DAILY 10/22/21 10/05/24 History (Aspirin Childrens) cholecalciferol (vitamin D3) 125 125 mcg PO DAILY 10/22/21 10/05/24 History mcg (5,000 unit) capsule acetaminophen 650 mg 650 mg PO Q12H PRN Pain 03/06/24 10/05/24 History tablet,extended release (Tylenol Arthritis Pain) fluticasone propionate 50 1 - 2 spray intranasal DAILY PRN 03/06/24 10/05/24 History mcg/actuation nasal Congestion spray,suspension hydroxyzine HCl 50 mg tablet 50 mg PO BEDTIME 03/06/24 10/05/24 History lisinopril 2.5 mg tablet 2.5 mg PO DAILY 03/06/24 10/05/24 History oxybutynin chloride 10 mg 10 mg PO DAILY 03/06/24 10/05/24 History tablet,extended release 24 hr pantoprazole 40 mg tablet,delayed 40 mg PO DAILY 03/06/24 10/05/24 History release hydrochlorothiazide 12.5 mg tablet 12.5 mg PO DAILY 03/16/24 10/05/24 History metoclopramide HCl 10 mg tablet 10 mg PO DAILY 08/24/24 10/05/24 History (Reglan) insulin glargine U-300 conc 300 30 unit SUBCUT DAILY 10/05/24 10/05/24 History unit/mL (3 mL) subcutaneous pen (Toujeo Max U-300 SoloStar) insulin lispro 100 unit/mL 15 - 30 unit SUBCUT TID 10/05/24 10/05/24 History subcutaneous pen (Admelog SoloStar U-100 Insulin lispro) Allergies/Adverse Reactions Allergy/AdvReac Type Severity Reaction Status Date / Time codeine Allergy Unknown Unknown Verified 10/10/24 10:20 hydrocodone Allergy Unknown Unknown Verified 10/10/24 10:20 phenytoin (From Dilantin) Allergy Unknown Unknown Verified 10/10/24 10:20 sulfamethoxazole Allergy Unknown Unknown Verified 10/10/24 10:20 trimethoprim Allergy Unknown Unknown Verified 10/10/24 10:20 fentanyl Allergy ADR-Vomitin Verified 10/10/24 10:20 g Latex, Natural Rubber Allergy ALGY-Redness Verified 10/10/24 10:20 of Skin phenytoin sodium Allergy Unknown Unknown Uncoded 10/10/24 10:20 novalog Allergy ALGY-Joint Uncoded 10/10/24 10:20 Pain steroid Allergy Unknown Uncoded 10/10/24 10:20 Current Medications: Generic Name Dose Route Start Last Admin Trade Name Freq PRN Reason Stop Dose Admin Sodium Chloride 1,000 mls @ 15 mls/hr 10/10/24 10:14 10/10/24 10:30 Sodium Chloride 0.9% IV 10/11/24 10:13 15 mls/hr .Q24H PRN Administration COLONOSCOPY FLUIDS Pertinent History/Comorbid Conditions* Medical History (Updated 09/07/24 @ 00:09 by Gary Rothman MD) CAD (coronary artery disease) Diabetes mellitus Surgical History (Updated 06/08/24 @ 19:54 by Gary Rothman MD) S/P anterior colporrhaphy (~04/24/24) with midurethral sling and cystoscopy performed by Patricio at [facility] for cystocele and mixed urinary incontinence. Family History (Updated 10/22/21 @ 13:40 by Marixa High RN) Enlarged heart Grandmother Cancer Grandmother Social History Smoking and tobacco/nicotine status: unknown if used tobacco/nicotine Alcohol intake: never Substance/Drug Use: never Pertinent Exam Findings alert, oriented x 3, clear to auscultation bilaterally, regular rate & rhythm and procedure specific exam findings abdomen soft, nt, nd Recommendations Risks and benefits of procedure reviewed and Patient/family agree to proceed Surgery/Procedure today Coding Level of Care Code Acute Code for Chg Fwd
[2024-10-10 12:07] VITALS: BP 109/66; PULSE 64; RESP 16; TEMP 36.2; O2SAT 95
--- NOTE | 2024-10-10 12:08 | SUR.OPER ---
Cecum at 1158. 7 min withdrawal time.
--- NOTE | 2024-10-10 12:10 | ANE.PACU2 ---
Inpatient post-anesthesia follow up: Airway intact: Yes Vital signs: Temperature 97.4 F Pulse Rate 70 Respiratory Rate 18 Blood Pressure 139/78 Pulse Oximetry 98 Oxygen Delivery Me thod Room Air Oxygen Flow Rate Fraction of Inspir ed Oxygen Hydration adequate: Yes Nausea and vomiting: No Pain level: 1 Mental status: Baseline
[2024-10-10 12:17] VITALS: BP 107/61; PULSE 65; RESP 16; O2SAT 95
== END 2024-10-10 12:40 | disposition home or self-care (01) ==
PROVIDERS: PCP Family Medicine; Visit Provider Student in an Organized Health Care Education/Training Program
PROC: 0DJD8ZZ Inspection of Lower Intestinal Tract, Via Natural or Artificial Opening Endoscopic (ICD-10-PCS; CPT 45378; principal; 2024-10-10 11:30)
DX: Z12.11 Encounter for screening for malignant neoplasm of colon (principal); D12.5 Benign neoplasm of sigmoid colon; Z80.0 Family history of malignant neoplasm of digestive organs; I25.10 Atherosclerotic heart disease of native coronary artery without angina pectoris; I25.2 Old myocardial infarction; K21.9 Gastro-esophageal reflux disease without esophagitis; E11.9 Type 2 diabetes mellitus without complications; E78.5 Hyperlipidemia, unspecified; Z87.891 Personal history of nicotine dependence; Z79.82 Long term (current) use of aspirin; Z79.899 Other long term (current) drug therapy; Z79.02 Long term (current) use of antithrombotics/antiplatelets; Z79.4 Long term (current) use of insulin; Z88.5 Allergy status to narcotic agent; Z88.2 Allergy status to sulfonamides; Z88.8 Allergy status to other drugs, medicaments and biological substances; Z91.040 Latex allergy status
CPT/HCPCS: 36416; 45385; 82962; 88305; G0105; J2704; J7030

== ENCOUNTER → 2024-10-23 13:21 | Outpatient (BNVA) | payer MEDICARE, MEDICAID, SELFPAY | PROVIDERS: PCP Family Medicine; Visit Provider Student in an Organized Health Care Education/Training Program | DX: Z09 Encounter for follow-up examination after completed treatment for conditions other than malignant neoplasm (principal) | CPT/HCPCS: 99213 ==

== ENCOUNTER → 2024-11-14 10:38 | Outpatient (BNVA) | payer MEDICARE, MEDICAID, SELFPAY | PROVIDERS: PCP Family Medicine; Visit Provider Internal Medicine | DX: I25.110 Atherosclerotic heart disease of native coronary artery with unstable angina pectoris (principal); E78.2 Mixed hyperlipidemia; E10.9 Type 1 diabetes mellitus without complications; Z79.4 Long term (current) use of insulin | CPT/HCPCS: 99214 ==

== ENCOUNTER → 2024-12-08 08:33 | Outpatient (BNVA) | payer MEDICARE, MEDICAID, SELFPAY | PROVIDERS: PCP Family Medicine; Visit Provider Internal Medicine | DX: I25.110 Atherosclerotic heart disease of native coronary artery with unstable angina pectoris (principal); E78.2 Mixed hyperlipidemia; E10.9 Type 1 diabetes mellitus without complications; Z79.4 Long term (current) use of insulin | CPT/HCPCS: 99214 ==

== ENCOUNTER → 2025-01-10 08:23 | Outpatient (BNVA) | payer MEDICARE, MEDICAID, SELFPAY | PROVIDERS: PCP Family Medicine; Visit Provider Podiatrist Foot & Ankle Surgery | DX: E10.42 Type 1 diabetes mellitus with diabetic polyneuropathy (principal); L60.3 Nail dystrophy; L84 Corns and callosities; G62.9 Polyneuropathy, unspecified; Z79.4 Long term (current) use of insulin | CPT/HCPCS: 11056; 11721; 99203 ==